=== PATIENT | male | born 1960 | race African-American/Black ===

== ENCOUNTER 2017-06-20 11:54 | Inpatient (IN) | payer MEDICAID ==
[~2017-06-20] VITALS: Ht 175.3 cm; Wt 69.4 kg
[2017-06-20 12:06] VITALS: BP 149/85; PULSE 100; RESP 16; TEMP 97.3; O2SAT 99
[2017-06-20 12:13] VITALS: RESP 16; O2SAT 99
[2017-06-20] MEDS ORDERED: SODIUM CHLORIDE 0.9% FLUSH 10 ML FLUSH IVF PRN (12:15)
[2017-06-20] MEDS ORDERED: RITO100 PO (12:19)
[2017-06-20] MEDS ORDERED: FOLI400T PO (12:19)
[2017-06-20] MEDS ORDERED: PRAV80TA2 PO (12:19)
[2017-06-20] MEDS ORDERED: LEVE500T8 PO (12:19)
[2017-06-20] MEDS ORDERED: EPZITAB3 PO (12:19)
[2017-06-20] MEDS ORDERED: VALP250C PO (12:19)
[2017-06-20] MEDS ORDERED: DILA100C PO (12:19)
[2017-06-20] MEDS ORDERED: PREZ150T PO (12:19)
[2017-06-20 12:47] LABS: BASOPHIL # 0.1 TH/MM3 (0-0.2); BASOPHIL % 0.8 % (0.0-2.0); EOSINOPHIL # 0.1 TH/MM3 (0-0.4); EOSINOPHIL % 0.7 % (0.0-4.0); HEMATOCRIT 45.6 % (39.0-51.0); HEMO FLAGS DIFF FINAL; LYMPH % 28.6 % (9.0-44.0); LYMPHOCYTE # 2.7 TH/MM3 (1.0-4.8); MEAN CELL VOLUME 93.9 FL (80.0-100.0); MEAN CORPUSCULAR HEMOGLOBIN 31.5 PG (27.0-34.0); MEAN CORPUSCULAR HGB CONC 33.5 % (32.0-36.0); MONO % 7.1 % (0.0-8.0); NEUT % 62.8 % (16.0-70.0); PLATELET COUNT 240 TH/MM3 (150-450); RED BLOOD COUNT 4.85 MIL/MM3 (4.50-5.90); RED CELL DISTRIBUTION WIDTH 14.2 % (11.6-17.2); WHITE BLOOD COUNT 9.5 TH/MM3 (4.0-11.0)
--- NOTE | 2017-06-20 13:10 | PD ---
HPI Chief Complaint: Seizure Time Seen by Provider: 12:08 Travel History International Travel<30 days: No Contact w/Intl Traveler<30days: No Traveled to known affect area: No History of Present Illness HPI Patient is a 57-year-old male with history of seizure disorder, stroke with right sided deficit here for reported seizure. Patient recently relocated from [place]. He is here living with a friend. Reportedly had a witnessed seizure in the home this morning, friend called EMS. EMS note the house to be in some disarray. All of patient's prescription bottles contained multiple different appearing medications. Patient friend told EMS that he administers medications to the patient, the patient has been refusing medications for approximately one week. Patient is postictal for EMS. Right sided deficit from previous CVA at baseline per EMS. Blood glucose normal. Patient is alert to self only, and is not able to participate with history. PFSH Past Medical History Cerebrovascular Accident: Yes Seizures: Yes Social History Alcohol Use: No (UNOBTAINABLE) Tobacco Use: No (UNOBTAINABLE) Substance Use: No (UNOBTAINABLE) Allergies-Medications (Allergen,Severity, Reaction): Coded Allergies: UNOBTAINABLE (Unverified , 06/20/17) Reported Meds & Prescriptions Reported Meds & Active Scripts Active Reported Pravastatin 80 Mg Tab 80 Mg PO HS Valproic Acid 250 Mg Cap 250 Mg PO TID Folic Acid Unknown Strength Tab 1 Mg PO DAILY Epzicom (Abacavir-Lamivudine) Unknown Strength Tab 600 Mg PO DAILY Hazardous agent; use appropriate precautions for handling & disposal. Norvir (Ritonavir) Unknown Strength Cap 100 Mg PO DAILY Prezista (Darunavir) Unknown Strength Tab 800 Mg PO DAILY Levetiracetam Unknown Strength Tab 500 Mg PO BID Dilantin (Phenytoin Extended) 100 Mg Cap 200 Mg PO BID Review of Systems Except as stated in HPI: all other systems reviewed are Neg Physical Exam Narrative GENERAL: Middle-aged male in no acute distress SKIN: Focused skin assessment warm/dry. HEAD: Atraumatic. Normocephalic. EYES: Pupils equal and round. 3 mm. No scleral icterus. No injection or drainage. ENT: No nasal bleeding or discharge. Mucous membranes pink and moist. NECK: Supple without nuchal rigidity CARDIOVASCULAR: Regular rate and rhythm. No murmur appreciated. RESPIRATORY: No accessory muscle use. Clear to auscultation. Breath sounds equal bilaterally. GASTROINTESTINAL: Abdomen soft, non-tender, nondistended. MUSCULOSKELETAL: No obvious deformities. No edema. NEUROLOGICAL: Awake and alert to self only. Unable to state place and believes it is 1968. No obvious cranial nerve deficits. Right sided arm/leg weakness compared to left but is able to move them and lift up off the bed. Patient has contracture of the right hand consistent with previous CVA and chronic muscle weakness/hemiplegia. Normal speech. Data Data Last Documented VS Vital Signs Date Time Temp Pulse Resp B/P Pulse Ox O2 Delivery O2 Flow Rate FiO2 06/20/17 12:13 16 99 Room Air 06/20/17 12:06 97.3 100 149/85 Orders Complete Blood Count With Diff (06/20/17 12:08) Basic Metabolic Panel (Bmp) (06/20/17 12:08) Phenytoin (Dilantin) (06/20/17 12:08) Ecg Monitoring (06/20/17 12:08) Iv Access Insert/Monitor (06/20/17 12:08) Oximetry (06/20/17 12:08) Sodium Chloride 0.9% Flush (Ns Flush) (06/20/17 12:15) Ammonia (06/20/17 12:08) Lactulose Liq (Lactulose Liq) (06/20/17 13:30) Fosphenytoin Inj (Cerebyx Inj) (06/20/17 13:45) Labs Laboratory Tests Test 06/20/17 12:29 White Blood Count 9.5 TH/MM3 Red Blood Count 4.85 MIL/MM3 Hemoglobin 15.3 GM/DL Hematocrit 45.6 % Mean Corpuscular Volume 93.9 FL Mean Corpuscular Hemoglobin 31.5 PG Mean Corpuscular Hemoglobin 33.5 % Concent Red Cell Distribution Width 14.2 % Platelet Count 240 TH/MM3 Mean Platelet Volume 8.1 FL Neutrophils (%) (Auto) 62.8 % Lymphocytes (%) (Auto) 28.6 % Monocytes (%) (Auto) 7.1 % Eosinophils (%) (Auto) 0.7 % Basophils (%) (Auto) 0.8 % Neutrophils # (Auto) 6.0 TH/MM3 Lymphocytes # (Auto) 2.7 TH/MM3 Monocytes # (Auto) 0.7 TH/MM3 Eosinophils # (Auto) 0.1 TH/MM3 Basophils # (Auto) 0.1 TH/MM3 CBC Comment DIFF FINAL Differential Comment Sodium Level 139 MEQ/L Potassium Level 4.2 MEQ/L Chloride Level 106 MEQ/L Carbon Dioxide Level 17.6 MEQ/L Anion Gap 15 MEQ/L Blood Urea Nitrogen 7 MG/DL Creatinine 1.14 MG/DL Estimat Glomerular Filtration 80 ML/MIN Rate Random Glucose 166 MG/DL Calcium Level 8.8 MG/DL Ammonia 101 MCMOL/L Phenytoin (Dilantin) Level LESS THAN 0.4 MCG/ML MDM Medical Decision Making Medical Screen Exam Complete: Yes Emergency Medical Condition: Yes Medical Record Reviewed: Yes Differential Diagnosis 57-year-old male with history of previous CVA and right sided hemiplegia, seizure disorder here for witnessed seizure at home, reportedly medication noncompliant times one week. Differential includes seizure, breakthrough seizure, medication nonadherence, pseudoseizure. Patient is still apparently post ictal on exam consistent with seizure. Narrative Course Patient placed on monitor, IV established and blood obtained. CBC, BMP, phenytoin level and ammonia level were obtained and notable for undetectable phenytoin. Ammonia elevated at 101. Bicarbonate slightly low at 17.6 likely due to recent seizure. Patient is still confused. Unclear whether this is due to postictal phase versus hyperammonemia. There is no family here to tell me how close this is patient's baseline. Patient was given dose of lactulose, loaded with 1 g of fosphenytoin and will be admitted for further management of hyperammonemia. Diagnosis Primary Impression: Hyperammonemia Additional Impressions: Post-ictal state Seizure Admitting Information Admitting Physician Requests: Beth Raymundo MD Jun 20, 2017 13:10
[2017-06-20 13:11] LABS: ANION GAP 15 MEQ/L (5-15); BICARBONATE 17.6 MEQ/L (21.0-32.0); BLOOD UREA NITROGEN 7 MG/DL (7-18); CHLORIDE 106 MEQ/L (98-107); GLOMERULAR FILTRATION RATE 80 ML/MIN (>89); POTASSIUM 4.2 MEQ/L (3.5-5.1); SODIUM (NA) 139 MEQ/L (136-145)
[2017-06-20] MEDS ORDERED: LACTULOSE SYRUP 20 GM/30 ML CUP PO ONE (13:30)
[2017-06-20] MEDS ORDERED: PHENYTOIN INJ 1,000 MG in SODIUM CHLORIDE 0.9% INJ 100 ML IV ONE (13:30)
[2017-06-20] MEDS ORDERED: FOSPHENYTOIN INJ 1,000 MGPE in SODIUM CHLORIDE 0.9% INJ 50 ML IV ONE (13:45)
[2017-06-20] MEDS ORDERED: SODIUM CHLORIDE 0.9% FLUSH 10 ML FLUSH IV FLUSH PRN (14:00)
[2017-06-20] MEDS ORDERED: NALOXONE HCL 0.4 MG/ML AMP IV PRN (14:00)
[2017-06-20] MEDS ORDERED: ONDANSETRON HCL 4 MG/2 ML VIAL IVP PRN (14:00)
[2017-06-20] MEDS ORDERED: LACTULOSE SYRUP 20 GM/30 ML CUP PO PRN (14:00)
[2017-06-20] MEDS ORDERED: SENNOSIDES 8.6 MG TAB PO PRN (14:00)
[2017-06-20] MEDS ORDERED: MAGNESIUM HYDROXIDE SUSP 30 ML CUP PO PRN (14:00)
[2017-06-20] MEDS ORDERED: BISACODYL 10 MG SUPP RECTAL PRN (14:00)
[2017-06-20] MEDS ORDERED: ACETAMINOPHEN 325 MG TAB PO PRN (14:00)
[2017-06-20] MEDS: SODIUM CHLOR 0.9% 1000 ML INJ 1,000 ML IV SCH (14:22)
[2017-06-20 14:25] VITALS: BP 153/68; PULSE 96; RESP 18; O2SAT 97
--- NOTE | 2017-06-20 15:03 | HHI.HP ---
[facility] Primary [facility] Physician Jose Le MD Admission Diagnosis hyperammonemia, postictal, seizure disorder Diagnoses: Chief Complaint: Altered mental status possible seizure Travel History International Travel<30 Days: No Contact w/Intl Traveler <30 Da: No Traveled to Known Affected Are: No History of Present Illness Written by Artemio Callaway, acting as scribe for Dr. Mondragon on 06/20/17 at 14:32. This note was transcribed by scribe CYNDIE Swanson. I, Dr. Jose Mondragon personally performed the history, physical exam, and medical decision making; and confirmed the accuracy of the information in the transcribed note. Authenticated by Dr. Jose Mondragon on 06/20/17 at 16:35. 57-year-old male with a reported past medical history of seizures, CVA, HIV, HLD who was brought in for possible seizure. Currently the patient is sitting up in bed, awake and alert, but completely disoriented and talking nonsensically. Patient is unable to answer any questions meaningfully and this is a noncontributory historian. History obtained from ED communication and the medical record. Reportedly the patient's friend/roommate noted the patient had a seizure. The question whether the patient has been taking his medications or not. He was found to have an elevated ammonia in the ED. The patient did receive 1 dose of lactulose. Review of Systems ROS Limitations: Altered Mental Status Review of systems is unobtainable secondary to altered mental status Past Family Social History Past Medical History Seizure disorder History of CVA with residual right-sided weakness On HIV medication Hyperlipidemia Past Surgical History Unable to obtain Reported Medications Reported Meds & Active Scripts Active Reported Pravastatin 80 Mg Tab 80 Mg PO HS Valproic Acid 250 Mg Cap 250 Mg PO TID Folic Acid Unknown Strength Tab 1 Mg PO DAILY Epzicom (Abacavir-Lamivudine) Unknown Strength Tab 600 Mg PO DAILY Hazardous agent; use appropriate precautions for handling & disposal. Norvir (Ritonavir) Unknown Strength Cap 100 Mg PO DAILY Prezista (Darunavir) Unknown Strength Tab 800 Mg PO DAILY Levetiracetam Unknown Strength Tab 500 Mg PO BID Dilantin (Phenytoin Extended) 100 Mg Cap 200 Mg PO BID Allergies: Coded Allergies: No Known Allergies (Unverified , 06/20/17) Active Ordered Medications Current Medications Medications (Trade) Dose Ordered Sig/Terri Route Start Time Stop Time Status Last Admin (NS 1000 ml Inj) 1,000 ml @ 100 mls/hr Q10H IV 06/20/17 14:00 06/20/17 14:22 (NS Flush) 2 ml UNSCH PRN IV FLUSH 06/20/17 14:00 (NS Flush) 2 ml BID IV FLUSH 06/20/17 21:00 (Tylenol) 650 mg Q4H PRN PO 06/20/17 14:00 (Zofran Inj) 4 mg Q6H PRN IVP 06/20/17 14:00 (Narcan Inj) 0.4 mg UNSCH PRN IV 06/20/17 14:00 (Merari-Colace) 1 tab BID PO 06/20/17 21:00 (Milk Of Magnesia Liq) 30 ml Q12H PRN PO 06/20/17 14:00 (Senokot) 17.2 mg Q12H PRN PO 06/20/17 14:00 (Dulcolax Supp) 10 mg DAILY PRN RECTAL 06/20/17 14:00 (Lactulose Liq) 30 ml DAILY PRN PO 06/20/17 14:00 Family History Unable to obtain Social History Unable to obtain Physical Exam Vital Signs Vital Signs Date Time Temp Pulse Resp B/P Pulse Ox O2 Delivery O2 Flow Rate FiO2 06/20/17 14:25 96 18 153/68 97 Room Air 06/20/17 12:13 16 99 Room Air 06/20/17 12:06 97.3 100 16 149/85 99 Physical Exam GENERAL: Well-developed well-nourished. In no acute distress. Sitting up in bed. Pleasant. Talking nonsensically. SKIN: Warm and dry. No lesions noted. HEENT: Normocephalic. Pupils equal and round. Mucous membranes pink and moist. CARDIOVASCULAR: Regular rate and rhythm. No murmur appreciated. RESPIRATORY: No accessory muscle use. Clear to auscultation. Breath sounds equal bilaterally. GASTROINTESTINAL: Abdomen soft, non-tender, nondistended. Bowel sounds x4. MUSCULOSKELETAL: No obvious deformities. No clubbing or cyanosis. No edema. NEUROLOGICAL: Awake and alert. Moves upper and lower extremities spontaneously. Normal speech, but perseverating. Laboratory Laboratory Tests Test 06/20/17 12:29 White Blood Count 9.5 Red Blood Count 4.85 Hemoglobin 15.3 Hematocrit 45.6 Mean Corpuscular Volume 93.9 Mean Corpuscular Hemoglobin 31.5 Mean Corpuscular Hemoglobin 33.5 Concent Red Cell Distribution Width 14.2 Platelet Count 240 Mean Platelet Volume 8.1 Neutrophils (%) (Auto) 62.8 Lymphocytes (%) (Auto) 28.6 Monocytes (%) (Auto) 7.1 Eosinophils (%) (Auto) 0.7 Basophils (%) (Auto) 0.8 Neutrophils # (Auto) 6.0 Lymphocytes # (Auto) 2.7 Monocytes # (Auto) 0.7 Eosinophils # (Auto) 0.1 Basophils # (Auto) 0.1 CBC Comment DIFF FINAL Differential Comment Sodium Level 139 Potassium Level 4.2 Chloride Level 106 Carbon Dioxide Level 17.6 Anion Gap 15 Blood Urea Nitrogen 7 Creatinine 1.14 Estimat Glomerular Filtration 80 Rate Random Glucose 166 Calcium Level 8.8 Ammonia 101 Phenytoin (Dilantin) Level LESS THAN 0.4 Result Diagram: 06/20/17 1229 06/20/17 1229 Assessment and Plan Assessment and Plan 57-year-old male with a reported past medical history of seizures, CVA, HIV, HLD who was brought in for possible seizure Acute encephalopathy: Probably metabolic secondary to postictal state and elevated ammonia/hepatic encephalopathy. -Check LFTs -Continue lactulose -Neuro checks -Follow-up ammonia level Seizure disorder: Reported seizure witnessed by the patient's roommate, but he has not been able to be contacted. Dilantin level undetectable, patient loaded with IV Celebrex in the ED. Bicarbonate was decreased at 17.6. Possible breakthrough seizure or secondary to noncompliance with medication. -Resume Dilantin and follow-up level in a.m. -Resume Keppra and valproic acid as well -Check EEG -Consider neurology consult Possible HIV: Reconcile and resume home antiretrovirals when patient is more awake and alert. DVT prophylaxis: SCDs Discussed Condition With Patient, Artemio Perdomo Jun 20, 2017 15:03 Erickson Mondragon DO Jun 20, 2017 16:35
[2017-06-20 16:03] VITALS: BP 165/88; PULSE 74; RESP 16; O2SAT 98
[2017-06-20 17:00] VITALS: BP 139/77; PULSE 66; RESP 20; TEMP 97.6; O2SAT 100
[2017-06-20 17:01] LABS: INDIRECT BILIRUBIN 0.2 MG/DL (0.0-0.8); TOTAL BILIRUBIN ADULT 0.3 MG/DL (0.2-1.0)
[2017-06-20] MEDS: LACTULOSE SYRUP 20 GM/30 ML CUP PO SCH ×2 (17:52→22:34)
[2017-06-20] MEDS: VALPROIC ACID 250 MG CAP PO SCH (18:43)
[2017-06-20 20:00] VITALS: BP 149/87; PULSE 69; RESP 18; TEMP 98.4; O2SAT 98
[2017-06-20] MEDS ORDERED: DOCUSATE SODIUM 50 MG/SENNA 8.6 MG TAB PO SCH (21:00)
[2017-06-20] MEDS: levETIRAcetam 500 MG TAB PO SCH (22:34)
[2017-06-20] MEDS: SODIUM CHLORIDE 0.9% FLUSH 10 ML FLUSH IV FLUSH SCH (22:34)
[2017-06-20] MEDS: PRAVASTATIN SOD 80 MG TAB PO SCH (22:34)
[2017-06-20] MEDS: PHENYTOIN SODIUM 100 MG CAP PO SCH (22:34)
[2017-06-21] VITALS: BP 140/80; PULSE 62; RESP 18; TEMP 98.3; O2SAT 97
[2017-06-21] MEDS: SODIUM CHLOR 0.9% 1000 ML INJ 1,000 ML IV SCH ×3 (01:15→21:08)
[2017-06-21 04:00] VITALS: BP 139/86; PULSE 63; RESP 18; TEMP 98.3; O2SAT 98
[2017-06-21 08:00] VITALS: BP 166/85; PULSE 76; RESP 20; TEMP 97.8; O2SAT 97
[2017-06-21] MEDS: VALPROIC ACID 250 MG CAP PO SCH ×3 (08:07→17:51)
[2017-06-21] MEDS: PHENYTOIN SODIUM 100 MG CAP PO SCH ×2 (08:07→21:01)
[2017-06-21] MEDS: LACTULOSE SYRUP 20 GM/30 ML CUP PO SCH ×4 (08:08→20:56)
[2017-06-21] MEDS: SODIUM CHLORIDE 0.9% FLUSH 10 ML FLUSH IV FLUSH SCH ×2 (08:08→21:00)
[2017-06-21] MEDS: levETIRAcetam 500 MG TAB PO SCH ×2 (08:14→21:02)
[2017-06-21 08:53] LABS: BASOPHIL % 0.7 % (0.0-2.0); EOSINOPHIL # 0.1 TH/MM3 (0-0.4); EOSINOPHIL % 0.9 % (0.0-4.0); HEMO FLAGS DIFF FINAL; LYMPH % 34.3 % (9.0-44.0); MEAN CELL VOLUME 94.4 FL (80.0-100.0); MEAN CORPUSCULAR HEMOGLOBIN 31.4 PG (27.0-34.0); MEAN CORPUSCULAR HGB CONC 33.2 % (32.0-36.0); MONO % 12.4 % (0.0-8.0); NEUT % 51.7 % (16.0-70.0); PLATELET COUNT 207 TH/MM3 (150-450); RED BLOOD COUNT 4.88 MIL/MM3 (4.50-5.90); RED CELL DISTRIBUTION WIDTH 14.9 % (11.6-17.2); WHITE BLOOD COUNT 5.9 TH/MM3 (4.0-11.0)
[2017-06-21 09:12] LABS: BICARBONATE 25.1 MEQ/L (21.0-32.0); POTASSIUM 3.8 MEQ/L (3.5-5.1)
[2017-06-21 12:00] VITALS: BP 151/90; PULSE 73; RESP 18; TEMP 97.6; O2SAT 99
--- NOTE | 2017-06-21 15:04 | MG ---
cc: AGAPITO RODRIGEZ M.D. Lab No: [id number] Date: 06/21/2017 Age: Sex: M Race: TECHNIQUE This is a 17-channel EEG. DESCRIPTION: The background rhythm shows fairly low amplitude slowing in the delta frequency, amplitude is only 5-10 microvolts. There is fairly prominent muscle artifact. I do not see any epileptiform discharges. I do not see any lateralizing features present. INTERPRETATION Abnormal study consistent with diffuse encephalopathy. MD PABLO Cesar/TLL /2:34 PM /3:00 PM
[2017-06-21 16:00] VITALS: BP 138/88; PULSE 78; RESP 18; TEMP 97.6; O2SAT 98
[2017-06-21 20:00] VITALS: BP 161/98; PULSE 75; RESP 18; TEMP 98.3; O2SAT 96
[2017-06-21] MEDS: PRAVASTATIN SOD 80 MG TAB PO SCH (20:57)
--- NOTE | 2017-06-21 21:54 | HHI.PR ---
Subjective Remarks Follow up for acute encephalopathy, seizure disorder. Patient appears to be mildly improved - able to tell me his name, date of . However, otherwise he remains confused, no coherent speech or thought process. Objective Vitals Vital Signs Date Time Temp Pulse Resp B/P Pulse Ox O2 Delivery O2 Flow Rate FiO2 06/21/17 20:00 98.3 75 18 161/98 96 06/21/17 17:53 21 06/21/17 16:00 97.6 78 18 138/88 98 06/21/17 12:00 97.6 73 18 151/90 99 06/21/17 08:00 97.8 76 20 166/85 97 06/21/17 04:00 98.3 63 18 139/86 98 06/21/17 00:00 98.3 62 18 140/80 97 I/O 06/20/17 06/20/17 06/20/17 06/21/17 06/21/17 06/21/17 06:59 14:59 22:59 06:59 14:59 22:59 Intake Total 890 ml 861 ml 720 ml 446 ml Output Total 300 ml Balance 890 ml 561 ml 720 ml 446 ml Intake Oral 100 ml 0 ml 720 ml IV Total 790 ml 861 ml 446 ml Output Urine Total 300 ml # Voids 2 3 # Bowel Movements 1 0 Result Diagram: 06/21/17 0815 06/21/17 0815 Objective Remarks GENERAL: Alert, NAD. SKIN: Warm and dry. HEAD: Normocephalic. EYES: No scleral icterus. No injection or drainage. NECK: Supple, trachea midline. No JVD or lymphadenopathy. CARDIOVASCULAR: Regular rate and rhythm without murmurs, gallops, or rubs. RESPIRATORY: Breath sounds equal bilaterally. No accessory muscle use. GASTROINTESTINAL: Abdomen soft, non-tender, nondistended. MUSCULOSKELETAL: No cyanosis, or edema. BACK: Nontender without obvious deformity. No CVA tenderness. Procedures EEG 06/21/2017 INTERPRETATION Abnormal study consistent with diffuse encephalopathy. A/P Problem List: (1) Encephalopathy acute ICD Code: G93.40 Status: Acute (2) Hyperammonemia ICD Code: E72.20 Status: Acute (3) Seizure ICD Code: R56.9 Status: Acute Assessment and Plan 57-year-old male with a reported past medical history of seizures, CVA, HIV, HLD who was brought in for possible seizure Acute encephalopathy: Probably metabolic secondary to postictal state and elevated ammonia/hepatic encephalopathy. - Ammonia 101. Repeat shows less than 10. - Mentation is somewhat improved. However, he remains largely encephalopathic. Seizure disorder: Reported seizure witnessed by the patient's roommate, but he has not been able to be contacted. Dilantin level undetectable, patient loaded with IV Celebrex in the ED. Bicarbonate was decreased at 17.6. Possible breakthrough seizure or secondary to noncompliance with medication. - Resume Dilantin and follow-up level in a.m. - Resume Keppra and valproic acid as well - Check EEG - shows abnormal study consistent with diffuse encephalopathy. - will consult Neurology for further input. -Consider neurology consult Possible HIV: Reconcile and resume home antiretrovirals when patient is more awake and alert. DVT prophylaxis: Erickson Lynn DO Jun 21, 2017 21:54
[2017-06-22] VITALS (7 sets, daily range): BP systolic 135–144; BP diastolic 82–91; PULSE 74–88; RESP 18–20; TEMP 97.4–98.4; O2SAT 97–100
[2017-06-22] MEDS: SODIUM CHLOR 0.9% 1000 ML INJ 1,000 ML IV SCH ×2 (05:26→16:00)
[2017-06-22] MEDS: levETIRAcetam 500 MG TAB PO SCH ×2 (07:28→20:23)
[2017-06-22] MEDS: PHENYTOIN SODIUM 100 MG CAP PO SCH ×2 (07:28→20:23)
[2017-06-22] MEDS: VALPROIC ACID 250 MG CAP PO SCH ×3 (07:28→17:39)
[2017-06-22] MEDS: SODIUM CHLORIDE 0.9% FLUSH 10 ML FLUSH IV FLUSH SCH ×2 (07:29→20:23)
[2017-06-22] MEDS: LACTULOSE SYRUP 20 GM/30 ML CUP PO SCH ×4 (07:29→20:23)
[2017-06-22] MEDS ORDERED: LORazepam 2 MG/ML VIAL IV PUSH PRN (11:45)
--- NOTE | 2017-06-22 12:08 | MB ---
cc: AGAPITO RODRIGEZ M.D. DATE OF CONSULTATION 06/22/2017 REASON FOR CONSULTATION Seizure. HISTORY OF PRESENT ILLNESS Mr. Ojeda is a 57-year-old man with a history of previous left hemisphere stroke and right-sided weakness secondary to seizure disorder. He is on Dilantin as well as valproic acid and Keppra. He was brought to the ER after he was noted to have a recurrent grand mal seizure. PAST MEDICAL HISTORY 1. History of previous stroke. 2. HIV positive. 3. Hyperlipidemia. 4. Stroke with right-sided weakness and aphasia. MEDICATIONS AT HOME 1. Pravastatin 80 mg daily. 2. Valproic acid 250 mg t.i.d. 3. Folic acid. 4. Epzicom 600 mg daily. 5. Norvir 100 mg daily. 6. Prezista 800 mg daily. 7. Keppra 500 mg b.i.d. 8. Dilantin 200 mg b.i.d. ALLERGIES None known. NEUROLOGIC EXAMINATION VITAL SIGNS: His blood pressure is 138/86, pulse is 88, respiratory rate is 20, temperature 98 degrees. HIGHER CORTICAL FUNCTION: He is alert. He has had an expressive aphasia. Follows commands. CRANIAL NERVES: He has a right upper motor neuron palsy. MOTOR EXAM: He has got a right hemiparesis at 1/5 right arm and right leg with normal strength on the left. REFLEXES: Symmetric. LABORATORY DATA Dilantin level on the 30th less than 0.4. Yesterday it was 11.9. Sodium 140, potassium 3.8, chloride 107, CO2 25.1. The BUN is 5, creatinine 0.85, glucose is 87, AST 24, ALT 26, alk phos 207. White count 5900, hemoglobin 15.3, hematocrit 46%, platelets 270,000. IMPRESSION Recurrent seizures, I suspect probably related to subtherapeutic Dilantin. RECOMMENDATIONS 1. We will repeat Dilantin level. 2. Also check a valproic acid level. 3. I would like to get an MRI brain as well as an EEG. MD PABLO Cesar/LUAN /11:32 AM /11:55 AM
--- NOTE | 2017-06-22 13:59 | HHI.PR ---
Subjective Remarks Follow up for acute encephalopathy, seizure disorder. Mr. Ojeda continues to show incoherent, confused pattern of mentation. Denies any acute concerns. Objective Vitals Vital Signs Date Time Temp Pulse Resp B/P Pulse Ox O2 Delivery O2 Flow Rate FiO2 06/22/17 12:00 97.7 88 20 135/82 99 06/22/17 08:00 98.1 88 20 138/86 99 06/22/17 04:00 98.4 74 18 137/87 100 06/22/17 00:00 97.4 77 18 144/89 99 06/21/17 20:00 98.3 75 18 161/98 96 06/21/17 17:53 21 06/21/17 16:00 97.6 78 18 138/88 98 I/O 06/21/17 06/21/17 06/21/17 06/22/17 06/22/17 06/22/17 07:00 15:00 23:00 07:00 15:00 23:00 Intake Total 861 ml 720 ml 446 ml 768 ml Output Total 300 ml 850 ml 550 ml Balance 561 ml 720 ml -404 ml 218 ml Intake Oral 0 ml 720 ml IV Total 861 ml 446 ml 768 ml Output Urine Total 300 ml 850 ml 550 ml # Voids 3 # Bowel Movements 1 0 1 2 Result Diagram: 06/21/1781406/21/17814 Objective Remarks GENERAL: Alert, NAD. SKIN: Warm and dry. HEAD: Normocephalic. EYES: No scleral icterus. No injection or drainage. NECK: Supple, trachea midline. No JVD or lymphadenopathy. CARDIOVASCULAR: Regular rate and rhythm without murmurs, gallops, or rubs. RESPIRATORY: Breath sounds equal bilaterally. No accessory muscle use. GASTROINTESTINAL: Abdomen soft, non-tender, nondistended. MUSCULOSKELETAL: No cyanosis, or edema. BACK: Nontender without obvious deformity. No CVA tenderness. Procedures EEG 06/21/2017 INTERPRETATION Abnormal study consistent with diffuse encephalopathy. A/P Problem List: (1) Encephalopathy acute ICD Code: G93.40 Status: Acute (2) Hyperammonemia ICD Code: E72.20 Status: Acute (3) Seizure ICD Code: R56.9 Status: Acute Assessment and Plan 57-year-old male with a reported past medical history of seizures, CVA, HIV, HLD who was brought in for possible seizure Acute encephalopathy: Probably metabolic secondary to postictal state and elevated ammonia/hepatic encephalopathy. - Ammonia 101. Repeat shows less than 10. - Mentation is somewhat improved. However, he remains largely encephalopathic. Seizure disorder: Reported seizure witnessed by the patient's roommate, but he has not been able to be contacted. Dilantin level undetectable, patient loaded with IV Celebrex in the ED. Bicarbonate was decreased at 17.6. Possible breakthrough seizure or secondary to noncompliance with medication. - Continue Keppra 500mg BID, Phenytoin 200mg BID and Valproic acid 250mg BID. - Phenytoin level was < 0.4. Repeat Phenytoin and Valproic acid level pending. - EEG - shows abnormal study consistent with diffuse encephalopathy. - Appreciate Neurology input. Dr. Mata has ordered additional tests including MRI brain which is pending. Possible HIV: Reconcile and resume home antiretrovirals when patient is more awake and alert. DVT prophylaxis: Erickson Lynn DO Jun 22, 2017 13:59
[2017-06-22] MEDS: PRAVASTATIN SOD 80 MG TAB PO SCH (20:23)
[2017-06-23] VITALS: BP 133/80; PULSE 86; RESP 17; TEMP 98; O2SAT 94
[2017-06-23] MEDS: SODIUM CHLOR 0.9% 1000 ML INJ 1,000 ML IV SCH ×3 (01:56→22:00)
[2017-06-23 04:00] VITALS: BP 124/81; PULSE 103; RESP 16; TEMP 97.7; O2SAT 94
[2017-06-23 08:00] VITALS: BP 147/86; PULSE 87; RESP 18; TEMP 97.5; O2SAT 98
[2017-06-23] MEDS: LACTULOSE SYRUP 20 GM/30 ML CUP PO SCH ×4 (09:50→20:24)
[2017-06-23] MEDS: levETIRAcetam 500 MG TAB PO SCH ×2 (09:50→20:23)
[2017-06-23] MEDS: SODIUM CHLORIDE 0.9% FLUSH 10 ML FLUSH IV FLUSH SCH ×2 (09:50→20:24)
[2017-06-23] MEDS: VALPROIC ACID 250 MG CAP PO SCH ×3 (09:50→17:06)
[2017-06-23] MEDS: PHENYTOIN SODIUM 100 MG CAP PO SCH ×2 (09:50→20:23)
[2017-06-23] MEDS ORDERED: GADODIAMIDE PF 287 MG/ML 5 ML VIAL (for RAD MRI) IV ONE (10:49)
--- NOTE | 2017-06-23 10:53 | RADRPT ---
EXAM DATE/TIME: 06/23/2017 08:53 [facility] COMPARISON: No previous studies available for comparison. INDICATIONS : Seizures. CONTRAST: 12 cc Omniscan (gadodiamide) IV MEDICAL HISTORY : Seizures. HIV. Stroke SURGICAL HISTORY : None. ENCOUNTER: Initial ACUITY: 3 day PAIN SCORE: 0/10 LOCATION: head TECHNIQUE: Multiplanar, multisequence MRI of the brain was performed both prior to and following the administrat ion of paramagnetic contrast. FINDINGS: CEREBRUM: There is moderate central and cortical atrophy dilatation of ventricular and sulcal spaces. No evide nce for an old infarct is seen in the left fundal region. There are no extra-axial fluid collections appreciated. There is no parenchymal hemorrhage. WHITE MATTER: Moderate periventricular white matter changes are noted extending into the posterior fossa. Minimal sclerosis left temporal lobe. POSTERIOR FOSSA: The cerebellum and brainstem are intact. Periventricular white matter changes are noted with minimal white matter disease. The 4th ventricle is midline. The cerebellopontine angle is unremarkable. Th e cerebellar tonsils are normal in position. DIFFUSION IMAGING: No focal areas of restricted diffusion are seen. No evidence of acute infarction. EXTRACRANIAL: Minimal right maxillary sinus disease is evident. POST-CONTRAST: There is no abnormal contrast enhancement. CONCLUSION: 1. One Central and cortical atrophy and moderate periventricular white disease. 2. Old ischemic changes. 3. Minimal sclerosis left temporal lobe. 4. There is no contrast enhancement. Alexys Faith MD FACR on June 23, 2017 at 10:47 Board Certified Radiologist. This report was verified electronically.
[2017-06-23 12:00] VITALS: BP 109/82; PULSE 92; RESP 18; TEMP 97.9; O2SAT 98
[2017-06-23 16:00] VITALS: BP 122/79; PULSE 86; RESP 18; TEMP 99.3; O2SAT 99
--- NOTE | 2017-06-23 16:58 | HHI.PR ---
Subjective Remarks Follow up for acute encephalopathy, seizure disorder. Patient remains alert but incoherent, encephalopathic. When asked, he denies any acute concerns. Objective Vitals Vital Signs Date Time Temp Pulse Resp B/P Pulse Ox O2 Delivery O2 Flow Rate FiO2 06/23/17 12:00 97.9 92 18 109/82 98 06/23/17 09:55 Room Air 06/23/17 08:00 97.5 87 18 147/86 98 06/23/17 04:00 97.7 103 16 124/81 94 06/23/17 04:00 Room Air 06/23/17 00:00 Room Air 06/23/17 00:00 98.0 86 17 133/80 94 06/22/17 20:00 Room Air 06/22/17 20:00 97.5 84 19 142/91 98 06/22/17 17:56 97 21 I/O 06/22/17 06/22/17 06/22/17 06/23/17 06/23/17 06/23/17 07:00 15:00 23:00 07:00 15:00 23:00 Intake Total 768 ml 600 ml 480 ml 1454 ml 240 ml Output Total 550 ml 450 ml 650 ml 2 ml 200 ml Balance 218 ml 150 ml -170 ml 1452 ml 40 ml Intake Oral 600 ml 480 ml 220 ml 240 ml IV Total 768 ml 1234 ml Output Urine Total 550 ml 450 ml 650 ml 2 ml 200 ml # Bowel Movements 2 0 1 2 2 Result Diagram: 06/21/17 0815 06/21/17 0815 Imaging Last Impressions Brain MRI 06/23/17 0000 Signed Impressions: Service Date/Time: Friday, June 23, 2017 08:53 - CONCLUSION: 1. One Central and cortical atrophy and moderate periventricular white disease. 2. Old ischemic changes. 3. Minimal sclerosis left temporal lobe. 4. There is no contrast enhancement. Alexys Faith MD FACR Objective Remarks GENERAL: Alert, NAD. SKIN: Warm and dry. HEAD: Normocephalic. EYES: No scleral icterus. No injection or drainage. NECK: Supple, trachea midline. No JVD or lymphadenopathy. CARDIOVASCULAR: Regular rate and rhythm without murmurs, gallops, or rubs. RESPIRATORY: Breath sounds equal bilaterally. No accessory muscle use. GASTROINTESTINAL: Abdomen soft, non-tender, nondistended. MUSCULOSKELETAL: No cyanosis, or edema. BACK: Nontender without obvious deformity. No CVA tenderness. Procedures EEG 06/21/2017 INTERPRETATION Abnormal study consistent with diffuse encephalopathy. A/P Problem List: (1) Encephalopathy acute ICD Code: G93.40 Status: Acute (2) Hyperammonemia ICD Code: E72.20 Status: Acute (3) Seizure ICD Code: R56.9 Status: Acute Assessment and Plan 57-year-old male with a reported past medical history of seizures, CVA, HIV, HLD who was brought in for possible seizure Acute encephalopathy: Probably metabolic secondary to postictal state and elevated ammonia/hepatic encephalopathy. - Ammonia 101. Repeat shows less than 10. - Mentation is somewhat improved. However, he remains largely encephalopathic. - MRI brain does not show any acute findings that could explain patient's encephalopathy. Seizure disorder: Reported seizure witnessed by the patient's roommate, but he has not been able to be contacted. Dilantin level undetectable, patient loaded with IV Celebrex in the ED. Bicarbonate was decreased at 17.6. Possible breakthrough seizure or secondary to noncompliance with medication. - Continue Keppra 500mg BID, Phenytoin 200mg BID and Valproic acid 250mg BID. - Phenytoin level was < 0.4. Repeat Phenytoin 11.9, 8.1 and Valproic acid level 49. - EEG - shows abnormal study consistent with diffuse encephalopathy. - Appreciate Neurology input. Possible HIV: Reconcile and resume home antiretrovirals when patient is more awake and alert. DVT prophylaxis: Erickson Lynn DO Jun 23, 2017 16:58
[2017-06-23 20:00] VITALS: BP 110/74; PULSE 78; RESP 20; TEMP 97.3; O2SAT 99
[2017-06-23] MEDS: PRAVASTATIN SOD 80 MG TAB PO SCH (20:23)
[2017-06-24] VITALS (7 sets, daily range): BP systolic 121–139; BP diastolic 61–84; PULSE 70–80; RESP 16–20; TEMP 97.3–98.1; O2SAT 96–98
[2017-06-24] MEDS: SODIUM CHLOR 0.9% 1000 ML INJ 1,000 ML IV SCH ×2 (02:09→12:29)
[2017-06-24] MEDS: VALPROIC ACID 250 MG CAP PO SCH ×3 (09:23→13:51)
[2017-06-24] MEDS: levETIRAcetam 500 MG TAB PO SCH ×2 (09:23→20:15)
[2017-06-24] MEDS: LACTULOSE SYRUP 20 GM/30 ML CUP PO SCH ×4 (09:24→20:15)
[2017-06-24] MEDS: PHENYTOIN SODIUM 100 MG CAP PO SCH ×2 (09:24→20:15)
[2017-06-24] MEDS: SODIUM CHLORIDE 0.9% FLUSH 10 ML FLUSH IV FLUSH SCH ×2 (09:24→20:15)
--- NOTE | 2017-06-24 18:42 | HHI.PR ---
Subjective Remarks Follow up for acute encephalopathy, seizure disorder. Mr. Ojeda is doing well. [id number] at bedside. She takes care of him a lot and reports that at his baseline, he is not able to run a coherent conversation. Based on my discussion with [id number], patient's mentation is likely his baseline. She wants him to go to a rehab. Objective Vitals Vital Signs Date Time Temp Pulse Resp B/P Pulse Ox O2 Delivery O2 Flow Rate FiO2 06/24/17 16:11 97.6 80 19 129/80 96 06/24/17 12:28 98 06/24/17 12:08 97.8 76 19 121/80 98 06/24/17 08:18 97.8 76 20 127/61 96 06/24/17 08:00 Room Air 06/24/17 04:00 Room Air 06/24/17 04:00 97.6 71 20 132/68 98 06/24/17 00:00 Room Air 06/24/17 00:00 97.3 72 20 132/81 97 06/23/17 20:00 Room Air 06/23/17 20:00 97.3 78 20 110/74 99 I/O 06/23/17 06/23/17 06/23/17 06/24/17 06/24/17 06/24/17 06:59 14:59 22:59 06:59 14:59 22:59 Intake Total 1454 ml 240 ml 480 ml 1220 ml 720 ml Output Total 2 ml 200 ml 0 ml Balance 1452 ml 40 ml 480 ml 1220 ml 720 ml Intake Oral 220 ml 240 ml 480 ml 720 ml IV Total 1234 ml 1220 ml Output Urine Total 2 ml 200 ml 0 ml # Voids 3 # Bowel Movements 2 2 2 2 Result Diagram: 06/21/1715 06/21/1715 Imaging Last Impressions Brain MRI 06/23/17 0000 Signed Impressions: Service Date/Time: Friday, June 23, 2017 08:53 - CONCLUSION: 1. One Central and cortical atrophy and moderate periventricular white disease. 2. Old ischemic changes. 3. Minimal sclerosis left temporal lobe. 4. There is no contrast enhancement. Alexys Faith MD FACR Objective Remarks GENERAL: Alert, NAD. SKIN: Warm and dry. HEAD: Normocephalic. EYES: No scleral icterus. No injection or drainage. NECK: Supple, trachea midline. No JVD or lymphadenopathy. CARDIOVASCULAR: Regular rate and rhythm without murmurs, gallops, or rubs. RESPIRATORY: Breath sounds equal bilaterally. No accessory muscle use. GASTROINTESTINAL: Abdomen soft, non-tender, nondistended. MUSCULOSKELETAL: No cyanosis, or edema. BACK: Nontender without obvious deformity. No CVA tenderness. Procedures EEG 06/21/2017 INTERPRETATION Abnormal study consistent with diffuse encephalopathy. A/P Problem List: (1) Encephalopathy acute ICD Code: G93.40 Status: Acute (2) Hyperammonemia ICD Code: E72.20 Status: Acute (3) Seizure ICD Code: R56.9 Status: Acute Assessment and Plan 57-year-old male with a reported past medical history of seizures, CVA, HIV, HLD who was brought in for possible seizure Acute encephalopathy: Probably metabolic secondary to postictal state and elevated ammonia/hepatic encephalopathy. - Ammonia 101. Repeat shows less than 10. - Mentation is somewhat improved. However, he remains largely encephalopathic. - MRI brain does not show any acute findings that could explain patient's encephalopathy. Seizure disorder: Reported seizure witnessed by the patient's roommate, but he has not been able to be contacted. Dilantin level undetectable, patient loaded with IV Celebrex in the ED. Bicarbonate was decreased at 17.6. Possible breakthrough seizure or secondary to noncompliance with medication. - Continue Keppra 500mg BID, Phenytoin 200mg BID and Valproic acid 250mg BID. - Phenytoin level was < 0.4. Repeat Phenytoin 11.9, 8.1 and Valproic acid level 49. - EEG - shows abnormal study consistent with diffuse encephalopathy. - Appreciate Neurology input. Possible HIV: Reconcile and resume home antiretrovirals when patient is more awake and alert. DVT prophylaxis: SCDs Discharge plan: Discussed with patient's [id number] and also discussed with CM who is working on placement. Patient is ready to be discharged whenever placement is arranged. Erickson Mondragon DO Jun 24, 2017 18:42
[2017-06-24] MEDS: PRAVASTATIN SOD 80 MG TAB PO SCH (20:15)
[2017-06-25] VITALS (8 sets, daily range): BP systolic 123–143; BP diastolic 71–81; PULSE 66–78; RESP 16–18; TEMP 97.4–98.2; O2SAT 96–100
[2017-06-25] MEDS: SODIUM CHLOR 0.9% 1000 ML INJ 1,000 ML IV SCH (04:00)
[2017-06-25] MEDS: PHENYTOIN SODIUM 100 MG CAP PO SCH ×2 (08:50→23:00)
[2017-06-25] MEDS: VALPROIC ACID 250 MG CAP PO SCH ×3 (08:50→17:53)
[2017-06-25] MEDS: levETIRAcetam 500 MG TAB PO SCH ×2 (08:50→23:00)
[2017-06-25] MEDS: LACTULOSE SYRUP 20 GM/30 ML CUP PO SCH ×4 (08:51→21:00)
[2017-06-25] MEDS: SODIUM CHLORIDE 0.9% FLUSH 10 ML FLUSH IV FLUSH SCH ×2 (08:51→23:00)
--- NOTE | 2017-06-25 13:28 | HHI.PR ---
Subjective Remarks Follow up for acute encephalopathy, seizure disorder. Mr. Ojeda is doing well. Denies any acute concerns. Sitting in his chair and eating lunch. Objective Vitals Vital Signs Date Time Temp Pulse Resp B/P Pulse Ox O2 Delivery O2 Flow Rate FiO2 06/25/17 12:00 98.0 76 18 140/76 99 06/25/17 10:30 97 06/25/17 09:00 Room Air 06/25/17 08:00 97.7 69 18 134/76 100 06/25/17 04:30 98.1 78 16 134/78 99 06/25/17 00:00 97.9 66 16 143/81 98 06/24/17 20:14 98.1 70 16 139/84 98 06/24/17 16:11 97.6 80 19 129/80 96 I/O 06/24/17 06/24/17 06/24/17 06/25/17 06/25/17 06/25/17 07:00 15:00 23:00 07:00 15:00 23:00 Intake Total 1220 ml 720 ml 240 ml 983 ml Output Total 1000 ml Balance 1220 ml 720 ml 240 ml -17 ml Intake Oral 720 ml 240 ml 0 ml IV Total 1220 ml 983 ml Output Urine Total 1000 ml # Voids 3 3 # Bowel Movements 2 1 0 Result Diagram: 06/21/1781406/21/17814 Objective Remarks GENERAL: Alert, NAD. SKIN: Warm and dry. HEAD: Normocephalic. EYES: No scleral icterus. No injection or drainage. NECK: Supple, trachea midline. No JVD or lymphadenopathy. CARDIOVASCULAR: Regular rate and rhythm without murmurs, gallops, or rubs. RESPIRATORY: Breath sounds equal bilaterally. No accessory muscle use. GASTROINTESTINAL: Abdomen soft, non-tender, nondistended. MUSCULOSKELETAL: No cyanosis, or edema. BACK: Nontender without obvious deformity. No CVA tenderness. Procedures EEG 06/21/2017 INTERPRETATION Abnormal study consistent with diffuse encephalopathy. A/P Problem List: (1) Encephalopathy acute ICD Code: G93.40 Status: Acute (2) Hyperammonemia ICD Code: E72.20 Status: Acute (3) Seizure ICD Code: R56.9 Status: Acute Assessment and Plan 57-year-old male with a reported past medical history of seizures, CVA, HIV, HLD who was brought in for possible seizure Acute encephalopathy: Probably metabolic secondary to postictal state and elevated ammonia/hepatic encephalopathy. - Ammonia 101. Repeat shows less than 10. - Mentation is somewhat improved. However, he remains largely encephalopathic. - MRI brain does not show any acute findings that could explain patient's encephalopathy. Seizure disorder: Reported seizure witnessed by the patient's roommate, but he has not been able to be contacted. Dilantin level undetectable, patient loaded with IV Celebrex in the ED. Bicarbonate was decreased at 17.6. Possible breakthrough seizure or secondary to noncompliance with medication. - Continue Keppra 500mg BID, Phenytoin 200mg BID and Valproic acid 250mg BID. - Phenytoin level was < 0.4. Repeat Phenytoin 11.9, 8.1 and Valproic acid level 49. - EEG - shows abnormal study consistent with diffuse encephalopathy. - Appreciate Neurology input. Possible HIV: Reconcile and resume home antiretrovirals when patient is more awake and alert. DVT prophylaxis: SCDs Discharge plan: Pending placement. Discussed with CM today. Erickson Mondragon DO Jun 25, 2017 13:28
[2017-06-25] MEDS: PRAVASTATIN SOD 80 MG TAB PO SCH (23:00)
[2017-06-26 00:01] VITALS: BP 142/77; PULSE 70; RESP 16; TEMP 97.7; O2SAT 99
[2017-06-26 04:11] VITALS: BP 133/74; PULSE 69; RESP 16; TEMP 97.5; O2SAT 99
[2017-06-26 08:00] VITALS: BP 132/78; PULSE 72; RESP 18; TEMP 97.7; O2SAT 97
[2017-06-26] MEDS: SODIUM CHLORIDE 0.9% FLUSH 10 ML FLUSH IV FLUSH SCH ×2 (08:59→21:00)
[2017-06-26] MEDS: PHENYTOIN SODIUM 100 MG CAP PO SCH ×2 (09:00→21:06)
[2017-06-26] MEDS: levETIRAcetam 500 MG TAB PO SCH ×2 (09:00→21:06)
[2017-06-26] MEDS: VALPROIC ACID 250 MG CAP PO SCH ×3 (09:00→17:44)
[2017-06-26] MEDS: LACTULOSE SYRUP 20 GM/30 ML CUP PO SCH ×4 (09:00→21:06)
[2017-06-26] MEDS: SODIUM CHLOR 0.9% 1000 ML INJ 1,000 ML IV SCH ×3 (10:00→21:06)
[2017-06-26 12:00] VITALS: BP 121/72; PULSE 71; RESP 18; TEMP 97.6; O2SAT 100
[2017-06-26 16:00] VITALS: BP 130/77; PULSE 77; RESP 18; TEMP 97.7; O2SAT 100
[2017-06-26] MEDS ORDERED: ABACAVIR LAMIVUDINE PO SCH (16:15)
--- NOTE | 2017-06-26 16:19 | HHI.PR ---
Subjective Remarks The patient was resting in bed comfortably. He had no acute complaints. Discussed with nursing. Objective Vitals Vital Signs Date Time Temp Pulse Resp B/P Pulse Ox O2 Delivery O2 Flow Rate FiO2 06/26/17 12:00 97.6 71 18 121/72 100 06/26/17 09:00 99 Room Air 06/26/17 08:00 97.7 72 18 132/78 97 06/26/17 04:11 97.5 69 16 133/74 99 06/26/17 00:01 97.7 70 16 142/77 99 06/25/17 20:30 Room Air 21 06/25/17 20:00 98.2 73 16 130/73 99 06/25/17 17:25 96 I/O 06/25/17 06/25/17 06/25/17 06/26/17 06/26/17 06/26/17 07:00 15:00 23:00 07:00 15:00 23:00 Intake Total 983 ml 360 ml 220 ml 360 ml Output Total 1000 ml 900 ml 200 ml 650 ml Balance -17 ml -540 ml 20 ml -290 ml Intake Oral 0 ml 360 ml 220 ml 360 ml IV Total 983 ml Output Urine Total 1000 ml 900 ml 200 ml 650 ml # Bowel Movements 0 0 0 1 Imaging Last Impressions Brain MRI 06/23/17 0000 Signed Impressions: Service Date/Time: Friday, June 23, 2017 08:53 - CONCLUSION: 1. One Central and cortical atrophy and moderate periventricular white disease. 2. Old ischemic changes. 3. Minimal sclerosis left temporal lobe. 4. There is no contrast enhancement. Alexys Faith MD FACR Objective Remarks GENERAL: Resting comfortably. SKIN: Warm and dry. HEAD: Normocephalic. EYES: No scleral icterus. No injection or drainage. NECK: Supple, trachea midline. No JVD or lymphadenopathy. CARDIOVASCULAR: Regular rate and rhythm without murmurs, gallops, or rubs. RESPIRATORY: Breath sounds equal bilaterally. No accessory muscle use. GASTROINTESTINAL: Abdomen soft, non-tender, nondistended. MUSCULOSKELETAL: No cyanosis, or edema. BACK: Nontender without obvious deformity. No CVA tenderness. NEURO: Seems confused. PSYCH: Flattened affect. Procedures EEG 06/21/2017 INTERPRETATION Abnormal study consistent with diffuse encephalopathy. Medications and IVs Current Medications Medications (Trade) Dose Ordered Sig/Terri Route Start Time Stop Time Status Last Admin (NS 1000 ml Inj) 1,000 ml @ 100 mls/hr Q10H IV 06/20/17 14:00 06/26/17 00:00 (NS Flush) 2 ml UNSCH PRN IV FLUSH 06/20/17 14:00 (NS Flush) 2 ml BID IV FLUSH 06/20/17 21:00 06/25/17 23:00 (Tylenol) 650 mg Q4H PRN PO 06/20/17 14:00 (Zofran Inj) 4 mg Q6H PRN IVP 06/20/17 14:00 (Narcan Inj) 0.4 mg UNSCH PRN IV 06/20/17 14:00 (Milk Of Magnesia Liq) 30 ml Q12H PRN PO 06/20/17 14:00 (Senokot) 17.2 mg Q12H PRN PO 06/20/17 14:00 (Dulcolax Supp) 10 mg DAILY PRN RECTAL 06/20/17 14:00 (Lactulose Liq) 30 ml QID PO 06/20/17 18:00 06/26/17 13:00 (Dilantin) 200 mg BID PO 06/20/17 21:00 06/26/17 09:00 (Pravachol) 80 mg HS PO 06/20/17 21:00 06/25/17 23:00 (Depakene) 250 mg TID PO 06/20/17 18:00 06/26/17 13:00 (Keppra) 500 mg BID PO 06/20/17 21:00 06/26/17 09:00 (Ativan Inj) 1 mg Q2H PRN IV PUSH 06/22/17 11:45 A/P Problem List: (1) Encephalopathy acute ICD Code: G93.40 Status: Acute (2) Hyperammonemia ICD Code: E72.20 Status: Acute (3) Seizure ICD Code: R56.9 Status: Acute Assessment and Plan 57-year-old male with a reported past medical history of seizures, CVA, HIV, HLD who was brought in for possible seizure Acute encephalopathy: Probably metabolic secondary to postictal state and elevated ammonia/hepatic encephalopathy. - Ammonia 101. Repeat shows less than 10. - Mentation is somewhat improved. However, he remains largely encephalopathic. - MRI brain does not show any acute findings that could explain patient's encephalopathy. - follow up with neurology. Seizure disorder: Reported seizure witnessed by the patient's roommate, but he has not been able to be contacted. Dilantin level undetectable, patient loaded with IV Celebrex in the ED. Bicarbonate was decreased at 17.6. Possible breakthrough seizure or secondary to noncompliance with medication. - Continue Keppra 500mg BID, Phenytoin 200mg BID and Valproic acid 250mg BID. - Phenytoin level was < 0.4. Repeat Phenytoin 11.9, 8.1 and Valproic acid level 49. - EEG - shows abnormal study consistent with diffuse encephalopathy. - Appreciate Neurology input. HIV - resume home antiretrovirals. DVT prophylaxis: SCDs Discharge Planning Awaiting placement Andreas Rogers DO Jun 26, 2017 16:19
[2017-06-26] MEDS: FOLIC ACID 1 MG TAB PO SCH (16:45)
[2017-06-26 20:00] VITALS: BP 127/79; PULSE 81; RESP 18; TEMP 97.5; O2SAT 98
[2017-06-26 20:46] LABS: ANION GAP 7 MEQ/L (5-15); AST (GOT) 21 U/L (15-37); BICARBONATE 26.8 MEQ/L (21.0-32.0); BLOOD UREA NITROGEN 6 MG/DL (7-18); CHLORIDE 105 MEQ/L (98-107); GLOMERULAR FILTRATION RATE 118 ML/MIN (>89); POTASSIUM 4.5 MEQ/L (3.5-5.1); SODIUM (NA) 139 MEQ/L (136-145)
[2017-06-26 20:47] LABS: AUTOMATED NEUTROPHIL # 2.4 TH/MM3 (1.8-7.7); BASOPHIL % 0.8 % (0.0-2.0); EOSINOPHIL # 0.1 TH/MM3 (0-0.4); EOSINOPHIL % 1.1 % (0.0-4.0); HEMATOCRIT 44.2 % (39.0-51.0); HEMO FLAGS DIFF FINAL; LYMPH % 35.9 % (9.0-44.0); LYMPHOCYTE # 1.8 TH/MM3 (1.0-4.8); MEAN CELL VOLUME 92.7 FL (80.0-100.0); MEAN CORPUSCULAR HEMOGLOBIN 30.2 PG (27.0-34.0); MEAN CORPUSCULAR HGB CONC 32.6 % (32.0-36.0); MONO % 13.6 % (0.0-8.0); NEUT % 48.6 % (16.0-70.0); PLATELET COUNT 172 TH/MM3 (150-450); RED BLOOD COUNT 4.77 MIL/MM3 (4.50-5.90); WHITE BLOOD COUNT 4.9 TH/MM3 (4.0-11.0)
[2017-06-26] MEDS: PRAVASTATIN SOD 80 MG TAB PO SCH (21:06)
[2017-06-26 21:11] LABS: ALKALINE PHOSPHATASE 181 U/L (45-117); ALT (GPT) 20 U/L (12-78); TOTAL BILIRUBIN ADULT 0.2 MG/DL (0.2-1.0)
[2017-06-27] VITALS (8 sets, daily range): BP systolic 125–150; BP diastolic 68–84; PULSE 62–85; RESP 18–20; TEMP 97.4–98; O2SAT 96–100
[2017-06-27] MEDS: SODIUM CHLOR 0.9% 1000 ML INJ 1,000 ML IV SCH ×2 (05:45→14:26)
[2017-06-27] MEDS: VALPROIC ACID 250 MG CAP PO SCH ×3 (09:00→18:08)
[2017-06-27] MEDS: SODIUM CHLORIDE 0.9% FLUSH 10 ML FLUSH IV FLUSH SCH ×2 (09:00→20:16)
[2017-06-27] MEDS: ABACAVIR SULFATE 300 MG TAB PO SCH (09:00)
[2017-06-27] MEDS: PHENYTOIN SODIUM 100 MG CAP PO SCH ×2 (09:00→20:17)
[2017-06-27] MEDS: FOLIC ACID 1 MG TAB PO SCH (09:00)
[2017-06-27] MEDS: levETIRAcetam 500 MG TAB PO SCH ×2 (09:00→20:17)
[2017-06-27] MEDS: LACTULOSE SYRUP 20 GM/30 ML CUP PO SCH ×4 (09:00→20:17)
[2017-06-27] MEDS: DARUNAVIR 800 MG TAB PO SCH (09:00)
[2017-06-27] MEDS: RITONAVIR 100 MG TAB PO SCH (09:00)
--- NOTE | 2017-06-27 13:45 | HHI.PR ---
Subjective Remarks The patient was watching TV. He had no acute complaints. He denied any pain on urination. He denied any shortness of breath or cough. Objective Vitals Vital Signs Date Time Temp Pulse Resp B/P Pulse Ox O2 Delivery O2 Flow Rate FiO2 06/27/17 12:00 97.8 85 18 150/84 99 06/27/17 11:43 97 06/27/17 08:45 Room Air 06/27/17 08:00 97.6 62 18 143/84 97 06/27/17 05:00 97.9 68 20 134/80 100 06/27/17 04:00 Room Air 06/27/17 00:00 Room Air 06/27/17 00:00 97.7 75 20 125/68 96 06/26/17 20:00 Room Air 06/26/17 20:00 97.5 81 18 127/79 98 06/26/17 16:00 97.7 77 18 130/77 100 I/O 06/26/17 06/26/17 06/26/17 06/27/17 06/27/17 06/27/17 07:00 15:00 23:00 07:00 15:00 23:00 Intake Total 360 ml 720 ml 1586 ml Output Total 650 ml 850 ml 400 ml Balance -290 ml -130 ml 1586 ml -400 ml Intake Oral 360 ml 720 ml 320 ml IV Total 1266 ml Output Urine Total 650 ml 850 ml 400 ml # Bowel Movements 1 0 3 Result Diagram: 06/26/17194206/26/17 194 Imaging Last Impressions Brain MRI 06/23/17 0000 Signed Impressions: Service Date/Time: Friday, June 23, 2017 08:53 - CONCLUSION: 1. One Central and cortical atrophy and moderate periventricular white disease. 2. Old ischemic changes. 3. Minimal sclerosis left temporal lobe. 4. There is no contrast enhancement. Alexys Faith MD FACR Objective Remarks GENERAL: Resting comfortably. SKIN: Warm and dry. HEAD: Normocephalic. EYES: No scleral icterus. No injection or drainage. NECK: Supple, trachea midline. No JVD or lymphadenopathy. CARDIOVASCULAR: Regular rate and rhythm without murmurs, gallops, or rubs. RESPIRATORY: Breath sounds equal bilaterally. No accessory muscle use. GASTROINTESTINAL: Abdomen soft, non-tender, nondistended. MUSCULOSKELETAL: No cyanosis, or edema. BACK: Nontender without obvious deformity. No CVA tenderness. NEURO: Answers questions with a "yes or no" for the most part. PSYCH: Flattened affect. Procedures EEG 06/21/2017 INTERPRETATION Abnormal study consistent with diffuse encephalopathy. Medications and IVs Current Medications Medications (Trade) Dose Ordered Sig/Terri Route Start Time Stop Time Status Last Admin (NS 1000 ml Inj) 1,000 ml @ 100 mls/hr Q10H IV 06/20/17 14:00 06/27/17 05:45 (NS Flush) 2 ml UNSCH PRN IV FLUSH 06/20/17 14:00 (NS Flush) 2 ml BID IV FLUSH 06/20/17 21:00 06/27/17 09:00 (Tylenol) 650 mg Q4H PRN PO 06/20/17 14:00 (Zofran Inj) 4 mg Q6H PRN IVP 06/20/17 14:00 (Narcan Inj) 0.4 mg UNSCH PRN IV 06/20/17 14:00 (Milk Of Magnesia Liq) 30 ml Q12H PRN PO 06/20/17 14:00 (Senokot) 17.2 mg Q12H PRN PO 06/20/17 14:00 (Dulcolax Supp) 10 mg DAILY PRN RECTAL 06/20/17 14:00 (Lactulose Liq) 30 ml QID PO 06/20/17 18:00 06/26/17 21:06 (Dilantin) 200 mg BID PO 06/20/17 21:00 06/27/17 09:00 (Pravachol) 80 mg HS PO 06/20/17 21:00 06/26/17 21:06 (Depakene) 250 mg TID PO 06/20/17 18:00 06/27/17 09:00 (Keppra) 500 mg BID PO 06/20/17 21:00 06/27/17 09:00 (Ativan Inj) 1 mg Q2H PRN IV PUSH 06/22/17 11:45 (Prezista) 800 mg DAILY PO 06/26/17 16:45 06/27/17 09:00 (Folate) 1 mg DAILY PO 06/26/17 16:45 06/27/17 09:00 (Norvir) 100 mg DAILY PO 06/26/17 16:45 06/27/17 09:00 (Epivir) 300 mg DAILY PO 06/26/17 17:00 06/27/17 09:00 (Ziagen) 600 mg DAILY PO 06/26/17 17:00 06/27/17 09:00 A/P Problem List: (1) Encephalopathy acute ICD Code: G93.40 Status: Acute (2) Hyperammonemia ICD Code: E72.20 Status: Acute (3) Seizure ICD Code: R56.9 Status: Acute Assessment and Plan 57-year-old male with a reported past medical history of seizures, CVA, HIV, HLD who was brought in for possible seizure Acute encephalopathy: Probably metabolic secondary to postictal state and elevated ammonia/hepatic encephalopathy. - Ammonia 101. Repeat shows less than 10. Will recheck levels. Check a B12 level. - Mentation is somewhat improved. However, he remains largely encephalopathic. - MRI brain does not show any acute findings that could explain patient's encephalopathy. - follow up with neurology. Seizure disorder: Reported seizure witnessed by the patient's roommate, but he has not been able to be contacted. Dilantin level undetectable, patient loaded with IV Celebrex in the ED. Bicarbonate was decreased at 17.6. Possible breakthrough seizure or secondary to noncompliance with medication. - Continue Keppra 500mg BID, Phenytoin 200mg BID and Valproic acid 250mg BID. - Phenytoin level was < 0.4. Repeat Phenytoin 11.9, 8.1 and Valproic acid level 49. - EEG - shows abnormal study consistent with diffuse encephalopathy. - Appreciate Neurology input. HIV - resume home antiretrovirals. DVT prophylaxis: SCDs Discharge Planning Awaiting placement Andreas Rogers DO Jun 27, 2017 13:45
--- NOTE | 2017-06-27 14:35 | RADRPT ---
EXAM DATE/TIME: 06/27/2017 14:10 [facility] COMPARISON: No previous studies available for comparison. INDICATIONS : Evaluate for pneumonia MEDICAL HISTORY : Seizures. HIV. Stroke SURGICAL HISTORY : None. ENCOUNTER: Initial ACUITY: 4 - 6 days PAIN SCORE: 0/10 LOCATION: chest FINDINGS: A single view of the chest demonstrates the lungs to be symmetrically aerated without evidence of mas s, infiltrate or effusion. The cardiomediastinal contours are unremarkable. Osseous structures are intact. CONCLUSION: No evidence of acute cardiopulmonary disease. Buzz Yañez MD on June 27, 2017 at 14:33 Board Certified Radiologist. This report was verified electronically.
[2017-06-27] MEDS: PRAVASTATIN SOD 80 MG TAB PO SCH (20:17)
[2017-06-28] VITALS (8 sets, daily range): BP systolic 125–145; BP diastolic 71–83; PULSE 72–94; RESP 18–20; TEMP 97.3–99.8; O2SAT 94–99
[2017-06-28] MEDS: SODIUM CHLOR 0.9% 1000 ML INJ 1,000 ML IV SCH ×3 (01:20→22:17)
[2017-06-28] MEDS: SODIUM CHLORIDE 0.9% FLUSH 10 ML FLUSH IV FLUSH SCH ×2 (09:00→22:16)
[2017-06-28] MEDS: VALPROIC ACID 250 MG CAP PO SCH ×3 (09:35→17:21)
[2017-06-28] MEDS: FOLIC ACID 1 MG TAB PO SCH (09:35)
[2017-06-28] MEDS: RITONAVIR 100 MG TAB PO SCH (09:35)
[2017-06-28] MEDS: DARUNAVIR 800 MG TAB PO SCH (09:35)
[2017-06-28] MEDS: levETIRAcetam 500 MG TAB PO SCH ×2 (09:35→22:16)
[2017-06-28] MEDS: ABACAVIR SULFATE 300 MG TAB PO SCH (09:36)
[2017-06-28] MEDS: PHENYTOIN SODIUM 100 MG CAP PO SCH ×2 (09:36→22:16)
[2017-06-28] MEDS: LACTULOSE SYRUP 20 GM/30 ML CUP PO SCH ×4 (09:36→22:15)
--- NOTE | 2017-06-28 12:37 | HHI.PR ---
Subjective Remarks The patient was resting comfortably in bed. He did seem to indicate he had some sort of a headache. Otherwise no acute complaint. Objective Vitals Vital Signs Date Time Temp Pulse Resp B/P Pulse Ox O2 Delivery O2 Flow Rate FiO2 06/28/17 08:00 97.4 72 18 125/73 99 06/28/17 04:00 98.2 90 20 136/71 94 06/28/17 04:00 Room Air 06/28/17 00:00 99.8 94 20 145/83 99 06/28/17 00:00 Room Air 06/27/17 20:00 Room Air 06/27/17 19:00 98.0 81 18 127/73 98 06/27/17 18:24 98 21 06/27/17 16:00 97.4 84 18 146/80 100 I/O 06/27/17 06/27/17 06/27/17 06/28/17 06/28/17 06/28/17 07:00 15:00 23:00 07:00 15:00 23:00 Intake Total 720 ml 240 ml 120 ml Output Total 400 ml 1600 ml 300 ml Balance -400 ml -880 ml -60 ml 120 ml Intake Oral 720 ml 240 ml 120 ml Output Urine Total 400 ml 1600 ml 300 ml # Voids 1 2 # Bowel Movements 3 1 1 1 Result Diagram: 06/26/17194206/26/171942 Objective Remarks GENERAL: Resting comfortably. SKIN: Warm and dry. HEAD: Normocephalic. EYES: No scleral icterus. No injection or drainage. NECK: Supple, trachea midline. No JVD or lymphadenopathy. CARDIOVASCULAR: Regular rate and rhythm without murmurs, gallops, or rubs. RESPIRATORY: Breath sounds equal bilaterally. No accessory muscle use. GASTROINTESTINAL: Abdomen soft, non-tender, nondistended. MUSCULOSKELETAL: No cyanosis, or edema. BACK: Nontender without obvious deformity. No CVA tenderness. NEURO: Answers questions with a "yes or no" for the most part. PSYCH: Flattened affect. Procedures EEG 06/21/2017 INTERPRETATION Abnormal study consistent with diffuse encephalopathy. Medications and IVs Current Medications Medications (Trade) Dose Ordered Sig/Terri Route Start Time Stop Time Status Last Admin (NS 1000 ml Inj) 1,000 ml @ 100 mls/hr Q10H IV 06/20/17 14:00 06/28/17 01:20 (NS Flush) 2 ml UNSCH PRN IV FLUSH 06/20/17 14:00 (NS Flush) 2 ml BID IV FLUSH 06/20/17 21:00 06/27/17 09:00 (Tylenol) 650 mg Q4H PRN PO 06/20/17 14:00 (Zofran Inj) 4 mg Q6H PRN IVP 06/20/17 14:00 (Narcan Inj) 0.4 mg UNSCH PRN IV 06/20/17 14:00 (Milk Of Magnesia Liq) 30 ml Q12H PRN PO 06/20/17 14:00 (Senokot) 17.2 mg Q12H PRN PO 06/20/17 14:00 (Dulcolax Supp) 10 mg DAILY PRN RECTAL 06/20/17 14:00 (Lactulose Liq) 30 ml QID PO 06/20/17 18:00 06/28/17 09:36 (Dilantin) 200 mg BID PO 06/20/17 21:00 06/28/17 09:36 (Pravachol) 80 mg HS PO 06/20/17 21:00 06/27/17 20:17 (Depakene) 250 mg TID PO 06/20/17 18:00 06/28/17 09:35 (Keppra) 500 mg BID PO 06/20/17 21:00 06/28/17 09:35 (Ativan Inj) 1 mg Q2H PRN IV PUSH 06/22/17 11:45 (Prezista) 800 mg DAILY PO 06/26/17 16:45 06/28/17 09:35 (Folate) 1 mg DAILY PO 06/26/17 16:45 06/28/17 09:35 (Norvir) 100 mg DAILY PO 06/26/17 16:45 06/28/17 09:35 (Epivir) 300 mg DAILY PO 06/26/17 17:00 06/28/17 09:34 (Ziagen) 600 mg DAILY PO 06/26/17 17:00 06/28/17 09:36 A/P Problem List: (1) Encephalopathy acute ICD Code: G93.40 Status: Acute (2) Hyperammonemia ICD Code: E72.20 Status: Acute (3) Seizure ICD Code: R56.9 Status: Acute Assessment and Plan 57-year-old male with a reported past medical history of seizures, CVA, HIV, HLD who was brought in for possible seizure Acute encephalopathy Probably metabolic secondary to postictal state and elevated ammonia/ hepatic encephalopathy. Mentation is somewhat improved, however, he remains largely encephalopathic. MRI brain does not show any acute findings that could explain patient's encephalopathy. Ammonia 101. Repeat level is over 40. - Continue lactulose. - follow up with neurology. - neuro checks. - PT/ OT. Seizure disorder Reported seizure witnessed by the patient's roommate, but he has not been able to be contacted. Dilantin level undetectable, patient loaded with IV Celebrex in the ED. Bicarbonate was decreased at 17.6. Possible breakthrough seizure or secondary to noncompliance with medication. Phenytoin level was < 0.4. Repeat Phenytoin 11.9, 8.1 and Valproic acid level 49. EEG shows abnormal study consistent with diffuse encephalopathy. - Continue Keppra 500mg BID, Phenytoin 200mg BID and Valproic acid 250mg BID. - Neurology follow-up. - seizure precautions. HIV On antiretrovirals. - resume home antiretrovirals. Headache The pt seemed to be indicating a headache. - Tylenol as needed. DVT prophylaxis: SCDs Discharge Planning Awaiting placement Andreas Rogers DO Jun 28, 2017 12:37
[2017-06-28] MEDS ORDERED: ACETAMINOPHEN 325 MG TAB PO ONE (12:45)
[2017-06-28 17:30] LABS: BLOOD, URINE SMALL (NEG); GLUCOSE,URINE NEG (NEG); KETONE, URINE NEG (NEG); NITRITE,URINE NEG (NEG); PH, URINE 7.5 (5.0-8.5); SQUAMOUS EPITHELIAL CELL URINE 1 /hpf (0-5); URINE COLOR YELLOW (YELLW/STRAW)
[2017-06-28 17:32] LABS: COMMENT (UR) CATH-CULT NOT IND; CULTURE IF INDICATED CATH CULTURE NOT IND
[2017-06-28] MEDS: PRAVASTATIN SOD 80 MG TAB PO SCH (22:16)
[2017-06-29] VITALS (7 sets, daily range): BP systolic 114–135; BP diastolic 71–82; PULSE 65–82; RESP 16–20; TEMP 97.3–98.9; O2SAT 95–100
[2017-06-29] MEDS: SODIUM CHLOR 0.9% 1000 ML INJ 1,000 ML IV SCH ×2 (08:44→17:59)
[2017-06-29] MEDS: FOLIC ACID 1 MG TAB PO SCH (08:46)
[2017-06-29] MEDS: LACTULOSE SYRUP 20 GM/30 ML CUP PO SCH ×4 (08:46→22:24)
[2017-06-29] MEDS: DARUNAVIR 800 MG TAB PO SCH (08:46)
[2017-06-29] MEDS: VALPROIC ACID 250 MG CAP PO SCH ×3 (08:46→17:56)
[2017-06-29] MEDS: levETIRAcetam 500 MG TAB PO SCH ×2 (08:46→22:24)
[2017-06-29] MEDS: RITONAVIR 100 MG TAB PO SCH (08:47)
[2017-06-29] MEDS: ABACAVIR SULFATE 300 MG TAB PO SCH (08:47)
[2017-06-29] MEDS: SODIUM CHLORIDE 0.9% FLUSH 10 ML FLUSH IV FLUSH SCH ×2 (08:47→21:00)
[2017-06-29] MEDS: PHENYTOIN SODIUM 100 MG CAP PO SCH ×2 (08:47→22:24)
--- NOTE | 2017-06-29 13:36 | HHI.PR ---
Subjective Remarks The patient was resting in bed with blankets draped over his head. He had no acute complaints. He was resting comfortably. Objective Vitals Vital Signs Date Time Temp Pulse Resp B/P Pulse Ox O2 Delivery O2 Flow Rate FiO2 06/29/17 12:00 97.5 81 20 114/74 97 06/29/17 09:52 95 21 06/29/17 08:00 97.4 76 20 128/76 98 06/29/17 04:00 98.9 71 16 135/71 99 06/29/17 00:00 97.3 65 18 130/82 100 06/28/17 20:00 98.0 81 18 139/83 99 06/28/17 20:00 Room Air 06/28/17 16:59 97 06/28/17 16:00 98.0 80 18 129/81 99 06/28/17 16:00 99 Room Air 06/28/17 14:57 99 Room Air I/O 06/28/17 06/28/17 06/28/17 06/29/17 06/29/17 06/29/17 07:00 15:00 23:00 07:00 15:00 23:00 Intake Total 120 ml 1669 ml 120 ml Output Total 600 ml 200 ml Balance 120 ml 1069 ml -80 ml Intake Oral 120 ml 360 ml 120 ml IV Total 1309 ml Output Urine Total 600 ml 200 ml # Voids 2 2 # Bowel Movements 1 0 1 Result Diagram: 06/26/17194206/26/171942 Imaging Last Impressions Chest X-Ray 06/27/17 0000 Signed Impressions: Service Date/Time: Tuesday, June 27, 2017 14:10 - CONCLUSION: No evidence of acute cardiopulmonary disease. Buzz Yañez MD Brain MRI 06/23/17 0000 Signed Impressions: Service Date/Time: Friday, June 23, 2017 08:53 - CONCLUSION: 1. One Central and cortical atrophy and moderate periventricular white disease. 2. Old ischemic changes. 3. Minimal sclerosis left temporal lobe. 4. There is no contrast enhancement. Alexys Faith MD FACR Objective Remarks GENERAL: Resting comfortably. SKIN: Warm and dry. HEAD: Normocephalic. EYES: No scleral icterus. No injection or drainage. NECK: Supple, trachea midline. No JVD or lymphadenopathy. CARDIOVASCULAR: Regular rate and rhythm without murmurs, gallops, or rubs. RESPIRATORY: Breath sounds equal bilaterally. No accessory muscle use. GASTROINTESTINAL: Abdomen soft, non-tender, nondistended. MUSCULOSKELETAL: No cyanosis, or edema. BACK: Nontender without obvious deformity. No CVA tenderness. NEURO: Answers questions with a "yes or no" for the most part. PSYCH: Flattened affect. Procedures None Medications and IVs Current Medications Medications (Trade) Dose Ordered Sig/Terri Route Start Time Stop Time Status Last Admin (NS 1000 ml Inj) 1,000 ml @ 100 mls/hr Q10H IV 06/20/17 14:00 06/29/17 08:44 (NS Flush) 2 ml UNSCH PRN IV FLUSH 06/20/17 14:00 (NS Flush) 2 ml BID IV FLUSH 06/20/17 21:00 06/28/17 22:16 (Tylenol) 650 mg Q4H PRN PO 06/20/17 14:00 (Zofran Inj) 4 mg Q6H PRN IVP 06/20/17 14:00 (Narcan Inj) 0.4 mg UNSCH PRN IV 06/20/17 14:00 (Milk Of Magnesia Liq) 30 ml Q12H PRN PO 06/20/17 14:00 (Senokot) 17.2 mg Q12H PRN PO 06/20/17 14:00 (Dulcolax Supp) 10 mg DAILY PRN RECTAL 06/20/17 14:00 (Lactulose Liq) 30 ml QID PO 06/20/17 18:00 06/29/17 12:49 (Dilantin) 200 mg BID PO 06/20/17 21:00 06/29/17 08:47 (Pravachol) 80 mg HS PO 06/20/17 21:00 06/28/17 22:16 (Depakene) 250 mg TID PO 06/20/17 18:00 06/29/17 12:49 (Keppra) 500 mg BID PO 06/20/17 21:00 06/29/17 08:46 (Ativan Inj) 1 mg Q2H PRN IV PUSH 06/22/17 11:45 (Prezista) 800 mg DAILY PO 06/26/17 16:45 06/29/17 08:46 (Folate) 1 mg DAILY PO 06/26/17 16:45 06/29/17 08:46 (Norvir) 100 mg DAILY PO 06/26/17 16:45 06/29/17 08:47 (Epivir) 300 mg DAILY PO 06/26/17 17:00 06/29/17 08:46 (Ziagen) 600 mg DAILY PO 06/26/17 17:00 06/29/17 08:47 A/P Problem List: (1) Encephalopathy acute ICD Code: G93.40 Status: Acute (2) Hyperammonemia ICD Code: E72.20 Status: Acute (3) Seizure ICD Code: R56.9 Status: Acute Assessment and Plan 57-year-old male with a reported past medical history of seizures, CVA, HIV, HLD who was brought in for possible seizure Acute encephalopathy Probably metabolic secondary to postictal state and elevated ammonia/ hepatic encephalopathy. Mentation is somewhat improved, however, he remains largely encephalopathic. MRI brain does not show any acute findings that could explain patient's encephalopathy. Ammonia 101. Repeat level is over 40. - Continue lactulose, titrate to 3-4 BMs daily. - follow up with neurology. - neuro checks. - PT/ OT. Seizure disorder Reported seizure witnessed by the patient's roommate, but he has not been able to be contacted. Dilantin level undetectable, patient loaded with IV Celebrex in the ED. Bicarbonate was decreased at 17.6. Possible breakthrough seizure or secondary to noncompliance with medication. Phenytoin level was < 0.4. Repeat Phenytoin 11.9, 8.1 and Valproic acid level 49. EEG shows abnormal study consistent with diffuse encephalopathy. - Continue Keppra 500mg BID, Phenytoin 200mg BID and Valproic acid 250mg BID. - Neurology follow-up. - seizure precautions. HIV On antiretrovirals. - resume home antiretrovirals. Headache The pt seemed to be indicating a headache. Seems to be resolved. - Tylenol as needed. DVT prophylaxis: SCDs Discharge Planning Awaiting placement Andreas Rogers DO Jun 29, 2017 13:36
[2017-06-29] MEDS: PRAVASTATIN SOD 80 MG TAB PO SCH (22:24)
[2017-06-30] VITALS (7 sets, daily range): BP systolic 119–142; BP diastolic 63–95; PULSE 68–84; RESP 16–18; TEMP 97.9–99.7; O2SAT 96–100
[2017-06-30] MEDS: SODIUM CHLOR 0.9% 1000 ML INJ 1,000 ML IV SCH ×2 (04:00→16:37)
[2017-06-30] MEDS: levETIRAcetam 500 MG TAB PO SCH ×2 (09:04→22:41)
[2017-06-30] MEDS: VALPROIC ACID 250 MG CAP PO SCH ×3 (09:04→16:38)
[2017-06-30] MEDS: DARUNAVIR 800 MG TAB PO SCH (09:04)
[2017-06-30] MEDS: PHENYTOIN SODIUM 100 MG CAP PO SCH ×2 (09:05→22:41)
[2017-06-30] MEDS: RITONAVIR 100 MG TAB PO SCH (09:05)
[2017-06-30] MEDS: LACTULOSE SYRUP 20 GM/30 ML CUP PO SCH ×4 (09:06→22:41)
[2017-06-30] MEDS: ABACAVIR SULFATE 300 MG TAB PO SCH (09:06)
[2017-06-30] MEDS: FOLIC ACID 1 MG TAB PO SCH (09:06)
[2017-06-30] MEDS: SODIUM CHLORIDE 0.9% FLUSH 10 ML FLUSH IV FLUSH SCH ×2 (09:07→22:41)
--- NOTE | 2017-06-30 11:03 | HHI.PR ---
Subjective Remarks The patient was resting comfortably in a chair. His family was at the bedside. They were pleased with how well the patient was doing. They said that if he goes home he would not be able to take care of himself. Discussed with case management. Objective Vitals Vital Signs Date Time Temp Pulse Resp B/P Pulse Ox O2 Delivery O2 Flow Rate FiO2 06/30/17 08:00 98.4 73 16 135/73 100 06/30/17 04:00 98.2 68 18 135/77 97 06/30/17 04:00 Room Air 06/30/17 00:00 99.7 74 18 130/79 97 06/30/17 00:00 Room Air 06/29/17 20:00 Room Air 06/29/17 20:00 98.8 82 18 129/74 97 06/29/17 16:00 98.3 82 20 121/74 98 06/29/17 15:10 97 Room Air 06/29/17 12:00 97.5 81 20 114/74 97 I/O 06/29/17 06/29/17 06/29/17 06/30/17 06/30/17 06/30/17 06:59 14:59 22:59 06:59 14:59 22:59 Intake Total 360 ml 3386 ml 657 ml Output Total 1200 ml 1000 ml 1000 ml Balance -840 ml 2386 ml -343 ml Intake Oral 360 ml IV Total 3386 ml 657 ml Output Urine Total 1200 ml 1000 ml 1000 ml # Bowel Movements 0 1 Result Diagram: 06/26/17194206/26/171942 Imaging Last Impressions Chest X-Ray 06/27/17 0000 Signed Impressions: Service Date/Time: Tuesday, June 27, 2017 14:10 - CONCLUSION: No evidence of acute cardiopulmonary disease. Buzz Yañez MD Brain MRI 06/23/17 0000 Signed Impressions: Service Date/Time: Friday, June 23, 2017 08:53 - CONCLUSION: 1. One Central and cortical atrophy and moderate periventricular white disease. 2. Old ischemic changes. 3. Minimal sclerosis left temporal lobe. 4. There is no contrast enhancement. Alexys Faith MD FACR Objective Remarks GENERAL: Resting comfortably. SKIN: Warm and dry. HEAD: Normocephalic. EYES: No scleral icterus. No injection or drainage. NECK: Supple, trachea midline. No JVD or lymphadenopathy. CARDIOVASCULAR: Regular rate and rhythm without murmurs, gallops, or rubs. RESPIRATORY: Breath sounds equal bilaterally. No accessory muscle use. GASTROINTESTINAL: Abdomen soft, non-tender, nondistended. MUSCULOSKELETAL: No cyanosis, or edema. BACK: Nontender without obvious deformity. No CVA tenderness. NEURO: Answers questions with a "yes or no" for the most part. PSYCH: Flattened affect. Procedures None Medications and IVs Current Medications Medications (Trade) Dose Ordered Sig/Terri Route Start Time Stop Time Status Last Admin (NS 1000 ml Inj) 1,000 ml @ 100 mls/hr Q10H IV 06/20/17 14:00 06/30/17 04:00 (NS Flush) 2 ml UNSCH PRN IV FLUSH 06/20/17 14:00 (NS Flush) 2 ml BID IV FLUSH 06/20/17 21:00 06/30/17 09:07 (Tylenol) 650 mg Q4H PRN PO 06/20/17 14:00 (Zofran Inj) 4 mg Q6H PRN IVP 06/20/17 14:00 (Narcan Inj) 0.4 mg UNSCH PRN IV 06/20/17 14:00 (Milk Of Magnesia Liq) 30 ml Q12H PRN PO 06/20/17 14:00 (Senokot) 17.2 mg Q12H PRN PO 06/20/17 14:00 (Dulcolax Supp) 10 mg DAILY PRN RECTAL 06/20/17 14:00 (Lactulose Liq) 30 ml QID PO 06/20/17 18:00 06/30/17 09:06 (Dilantin) 200 mg BID PO 06/20/17 21:00 06/30/17 09:05 (Pravachol) 80 mg HS PO 06/20/17 21:00 06/29/17 22:24 (Depakene) 250 mg TID PO 06/20/17 18:00 06/30/17 09:04 (Keppra) 500 mg BID PO 06/20/17 21:00 06/30/17 09:04 (Ativan Inj) 1 mg Q2H PRN IV PUSH 06/22/17 11:45 (Prezista) 800 mg DAILY PO 06/26/17 16:45 06/30/17 09:04 (Folate) 1 mg DAILY PO 06/26/17 16:45 06/30/17 09:06 (Norvir) 100 mg DAILY PO 06/26/17 16:45 06/30/17 09:05 (Epivir) 300 mg DAILY PO 06/26/17 17:00 06/30/17 09:05 (Ziagen) 600 mg DAILY PO 06/26/17 17:00 06/30/17 09:06 A/P Problem List: (1) Encephalopathy acute ICD Code: G93.40 Status: Acute (2) Hyperammonemia ICD Code: E72.20 Status: Acute (3) Seizure ICD Code: R56.9 Status: Acute Assessment and Plan 57-year-old male with a reported past medical history of seizures, CVA, HIV, HLD who was brought in for possible seizure Acute encephalopathy Probably metabolic secondary to postictal state and elevated ammonia/ hepatic encephalopathy. Mentation is somewhat improved, however, he remains largely encephalopathic. MRI brain does not show any acute findings that could explain patient's encephalopathy. Ammonia 101. Repeat level is over 40. - Continue lactulose, titrate to 3-4 BMs daily. - follow up with neurology. - neuro checks. - PT/ OT. - Case management following and assisting with placement. Seizure disorder Reported seizure witnessed by the patient's roommate, but he has not been able to be contacted. Dilantin level undetectable, patient loaded with IV Celebrex in the ED. Bicarbonate was decreased at 17.6. Possible breakthrough seizure or secondary to noncompliance with medication. Phenytoin level was < 0.4. Repeat Phenytoin 11.9, 8.1 and Valproic acid level 49. EEG shows abnormal study consistent with diffuse encephalopathy. - Continue Keppra 500mg BID, Phenytoin 200mg BID and Valproic acid 250mg BID. - Neurology follow-up. - seizure precautions. HIV On antiretrovirals. - resume home antiretrovirals. Headache The pt seemed to be indicating a headache. Seems to be resolved. - Tylenol as needed. DVT prophylaxis: SCDs Discharge Planning Awaiting placement Andreas Rogers DO Jun 30, 2017 11:03
--- NOTE | 2017-06-30 17:29 | HHI.PR ---
Review/Management Diagnosis old CVA SZ disorder Plan Recheck phenytoin and valproic acid levels Diagnosis/Plan: Subjective Subjective Comments No acute events reported No sz. Active Medications Current Medications Medications (Trade) Dose Ordered Sig/Terri Route Start Time Stop Time Status Last Admin (NS 1000 ml Inj) 1,000 ml @ 100 mls/hr Q10H IV 06/20/17 14:00 06/30/17 16:37 (NS Flush) 2 ml UNSCH PRN IV FLUSH 06/20/17 14:00 (NS Flush) 2 ml BID IV FLUSH 06/20/17 21:00 06/30/17 09:07 (Tylenol) 650 mg Q4H PRN PO 06/20/17 14:00 (Zofran Inj) 4 mg Q6H PRN IVP 06/20/17 14:00 (Narcan Inj) 0.4 mg UNSCH PRN IV 06/20/17 14:00 (Milk Of Magnesia Liq) 30 ml Q12H PRN PO 06/20/17 14:00 (Senokot) 17.2 mg Q12H PRN PO 06/20/17 14:00 (Dulcolax Supp) 10 mg DAILY PRN RECTAL 06/20/17 14:00 (Lactulose Liq) 30 ml QID PO 06/20/17 18:00 06/30/17 16:38 (Dilantin) 200 mg BID PO 06/20/17 21:00 06/30/17 09:05 (Pravachol) 80 mg HS PO 06/20/17 21:00 06/29/17 22:24 (Depakene) 250 mg TID PO 06/20/17 18:00 06/30/17 16:38 (Keppra) 500 mg BID PO 06/20/17 21:00 06/30/17 09:04 (Ativan Inj) 1 mg Q2H PRN IV PUSH 06/22/17 11:45 (Prezista) 800 mg DAILY PO 06/26/17 16:45 06/30/17 09:04 (Folate) 1 mg DAILY PO 06/26/17 16:45 06/30/17 09:06 (Norvir) 100 mg DAILY PO 06/26/17 16:45 06/30/17 09:05 (Epivir) 300 mg DAILY PO 06/26/17 17:00 06/30/17 09:05 (Ziagen) 600 mg DAILY PO 06/26/17 17:00 06/30/17 09:06 Allergies Allergies Coded Allergies No Known Allergies (Unverified06/20/17) Exam I&O / VS 06/29/17 06/29/17 06/30/17 14:59 22:59 06:59 Intake Total 360 ml 3386 ml 657 ml Output Total 1200 ml 1000 ml 1000 ml Balance -840 ml 2386 ml -343 ml Intake Oral 360 ml IV Total 3386 ml 657 ml Output Urine Total 1200 ml 1000 ml 1000 ml # Bowel Movements 0 1 Vital Signs Date Time Temp Pulse Resp B/P Pulse Ox O2 Delivery O2 Flow Rate FiO2 06/30/17 12:00 98.1 78 16 119/74 97 06/30/17 11:33 96 21 06/30/17 08:00 98.4 73 16 135/73 100 06/30/17 08:00 Room Air 06/30/17 04:00 98.2 68 18 135/77 97 06/30/17 04:00 Room Air 06/30/17 00:00 99.7 74 18 130/79 97 06/30/17 00:00 Room Air 06/29/17 20:00 Room Air 06/29/17 20:00 98.8 82 18 129/74 97 Exam Comments alert, follow commands CN intact MOTOR--generalized weakness Objective Radiology Results MRI brain---no acute changes left temporal lobe sclerosis. Old ischemic changes. No abnormal enhancement Jewel Mata PhD Jun 30, 2017 17:28
[2017-06-30] MEDS: PRAVASTATIN SOD 80 MG TAB PO SCH (22:41)
[2017-07-01] VITALS: BP 138/82; PULSE 73; RESP 18; TEMP 98; O2SAT 98
[2017-07-01] MEDS: SODIUM CHLOR 0.9% 1000 ML INJ 1,000 ML IV SCH ×2 (00:03→12:09)
[2017-07-01 04:00] VITALS: BP 126/78; PULSE 83; RESP 16; TEMP 97.8; O2SAT 96
[2017-07-01 08:00] VITALS: BP 120/72; PULSE 73; RESP 18; TEMP 97.8; O2SAT 97
[2017-07-01] MEDS: SODIUM CHLORIDE 0.9% FLUSH 10 ML FLUSH IV FLUSH SCH (09:00)
[2017-07-01] MEDS: DARUNAVIR 800 MG TAB PO SCH (09:46)
[2017-07-01] MEDS: levETIRAcetam 500 MG TAB PO SCH (09:46)
[2017-07-01] MEDS: LACTULOSE SYRUP 20 GM/30 ML CUP PO SCH ×3 (09:46→17:30)
[2017-07-01] MEDS: RITONAVIR 100 MG TAB PO SCH (09:46)
[2017-07-01] MEDS: FOLIC ACID 1 MG TAB PO SCH (09:46)
[2017-07-01] MEDS: ABACAVIR SULFATE 300 MG TAB PO SCH (09:46)
[2017-07-01] MEDS: PHENYTOIN SODIUM 100 MG CAP PO SCH (09:46)
[2017-07-01] MEDS: VALPROIC ACID 250 MG CAP PO SCH ×3 (09:46→17:30)
--- NOTE | 2017-07-01 09:53 | HHI.PR ---
Subjective Remarks Family at the bedside. The pt was resting comfortably. No acute complaints. Discussed with nursing. Objective Vitals Vital Signs Date Time Temp Pulse Resp B/P Pulse Ox O2 Delivery O2 Flow Rate FiO2 07/01/17 04:00 97.8 83 16 126/78 96 07/01/17 00:00 98.0 73 18 138/82 98 06/30/17 20:11 21 06/30/17 20:00 97.9 84 18 140/95 98 06/30/17 19:00 Room Air 06/30/17 16:00 98.2 76 16 142/63 98 06/30/17 12:00 98.1 78 16 119/74 97 06/30/17 11:33 96 21 I/O 06/30/17 06/30/17 06/30/17 07/01/17 07/01/17 07/01/17 07:00 15:00 23:00 07:00 15:00 23:00 Intake Total 657 ml 2104 ml 120 ml Output Total 1000 ml 2200 ml Balance -343 ml 2104 ml -2080 ml Intake Oral 240 ml 120 ml IV Total 657 ml 1864 ml Output Urine Total 1000 ml 2200 ml # Voids 2 # Bowel Movements 1 0 Imaging Last Impressions Chest X-Ray 06/27/17 0000 Signed Impressions: Service Date/Time: Tuesday, June 27, 2017 14:10 - CONCLUSION: No evidence of acute cardiopulmonary disease. Buzz Yañez MD Brain MRI 06/23/17 0000 Signed Impressions: Service Date/Time: Friday, June 23, 2017 08:53 - CONCLUSION: 1. One Central and cortical atrophy and moderate periventricular white disease. 2. Old ischemic changes. 3. Minimal sclerosis left temporal lobe. 4. There is no contrast enhancement. Alexys Faith MD FACR Objective Remarks GENERAL: Resting comfortably. SKIN: Warm and dry. HEAD: Normocephalic. EYES: No scleral icterus. No injection or drainage. NECK: Supple, trachea midline. No JVD or lymphadenopathy. CARDIOVASCULAR: Regular rate and rhythm without murmurs, gallops, or rubs. RESPIRATORY: Breath sounds equal bilaterally. No accessory muscle use. GASTROINTESTINAL: Abdomen soft, non-tender, nondistended. MUSCULOSKELETAL: No cyanosis, or edema. BACK: Nontender without obvious deformity. No CVA tenderness. NEURO: Answers questions with a "yes or no" for the most part. PSYCH: Flattened affect. Procedures None Medications and IVs Current Medications Medications (Trade) Dose Ordered Sig/Terri Route Start Time Stop Time Status Last Admin (NS 1000 ml Inj) 1,000 ml @ 100 mls/hr Q10H IV 06/20/17 14:00 07/01/17 00:03 (NS Flush) 2 ml UNSCH PRN IV FLUSH 06/20/17 14:00 (NS Flush) 2 ml BID IV FLUSH 06/20/17 21:00 06/30/17 22:41 (Tylenol) 650 mg Q4H PRN PO 06/20/17 14:00 (Zofran Inj) 4 mg Q6H PRN IVP 06/20/17 14:00 (Narcan Inj) 0.4 mg UNSCH PRN IV 06/20/17 14:00 (Milk Of Magnesia Liq) 30 ml Q12H PRN PO 06/20/17 14:00 (Senokot) 17.2 mg Q12H PRN PO 06/20/17 14:00 (Dulcolax Supp) 10 mg DAILY PRN RECTAL 06/20/17 14:00 (Lactulose Liq) 30 ml QID PO 06/20/17 18:00 07/01/17 09:46 (Dilantin) 200 mg BID PO 06/20/17 21:00 07/01/17 09:46 (Pravachol) 80 mg HS PO 06/20/17 21:00 06/30/17 22:41 (Depakene) 250 mg TID PO 06/20/17 18:00 07/01/17 09:46 (Keppra) 500 mg BID PO 06/20/17 21:00 07/01/17 09:46 (Ativan Inj) 1 mg Q2H PRN IV PUSH 06/22/17 11:45 (Prezista) 800 mg DAILY PO 06/26/17 16:45 07/01/17 09:46 (Folate) 1 mg DAILY PO 06/26/17 16:45 07/01/17 09:46 (Norvir) 100 mg DAILY PO 06/26/17 16:45 07/01/17 09:46 (Epivir) 300 mg DAILY PO 06/26/17 17:00 07/01/17 09:47 (Ziagen) 600 mg DAILY PO 06/26/17 17:00 07/01/17 09:46 A/P Problem List: (1) Encephalopathy acute ICD Code: G93.40 Status: Acute (2) Hyperammonemia ICD Code: E72.20 Status: Acute (3) Seizure ICD Code: R56.9 Status: Acute Assessment and Plan 57-year-old male with a reported past medical history of seizures, CVA, HIV, HLD who was brought in for possible seizure Acute encephalopathy Probably metabolic secondary to postictal state and elevated ammonia/ hepatic encephalopathy. Mentation is somewhat improved, however, he remains largely encephalopathic. MRI brain does not show any acute findings that could explain patient's encephalopathy. Ammonia 101. Repeat level is over 40. - Continue lactulose, titrate to 3-4 BMs daily. - follow up with neurology. - neuro checks. - PT/ OT. - Case management following and assisting with placement. Seizure disorder Reported seizure witnessed by the patient's roommate, but he has not been able to be contacted. Dilantin level undetectable, patient loaded with IV Celebrex in the ED. Bicarbonate was decreased at 17.6. Possible breakthrough seizure or secondary to noncompliance with medication. Phenytoin level was < 0.4. Repeat Phenytoin and Valproic acid levels therapeutic 07/01. EEG shows abnormal study consistent with diffuse encephalopathy. - Continue Keppra 500mg BID, Phenytoin 200mg BID and Valproic acid 250mg BID. - Neurology follow-up. - seizure precautions. HIV On antiretrovirals. - resume home antiretrovirals. Headache The pt seemed to be indicating a headache. Seems to be resolved. - Tylenol as needed. DVT prophylaxis: SCDs Discharge Planning Awaiting placement Andreas Rogers DO Jul 01, 2017 09:53
[2017-07-01 12:00] VITALS: BP 129/79; PULSE 91; RESP 18; TEMP 97.6; O2SAT 96
[2017-07-01 12:50] VITALS: O2SAT 97
[2017-07-01] MEDS ORDERED: LACT10SO PO (15:05)
--- NOTE | 2017-07-01 15:05 | HHI.DCPOC ---
Discharge Care Plan Diagnosis: (1) Post-ictal state (2) Seizure (3) Hyperammonemia (4) Encephalopathy acute Goals to Promote Your Health * To prevent worsening of your condition and complications * To maintain your health at the optimal level Directions to Meet Your Goals Take your medications as prescribed Follow your dietary instruction Follow activity as directed Keep your appointments as scheduled Take your immunizations and boosters as scheduled If your symptoms worsen call your PCP, if no PCP go to Urgent Care Center or Emergency Room Smoking is Dangerous to Your Health. Avoid second hand smoke Call the 24-hour hour crisis hotline for domestic abuse at Andreas Rogers DO Jul 01, 2017 15:05
--- NOTE | 2017-07-01 15:10 | HHI.DS ---
Discharge Summary Admission Date Jun 20, 2017 at 14:10 Discharge Date: Jul 01, 2017 Admitting Diagnosis hyperammonemia, postictal, seizure disorder (1) Encephalopathy acute ICD Code: G93.40 Diagnosis: Principal (2) Hyperammonemia ICD Code: E72.20 Diagnosis: Principal (3) Seizure ICD Code: R56.9 Diagnosis: Principal Procedures None Brief History - From Admission Written by Artemio Callaway, acting as scribe for Dr. Mondragon on 06/20/17 at 14:32. This note was transcribed by CYNDIE Wright. I, Dr. Jose Mondragon personally performed the history, physical exam, and medical decision making; and confirmed the accuracy of the information in the transcribed note. Authenticated by Dr. Jose Mondragon on 06/20/17 at 16:35. 57-year-old male with a reported past medical history of seizures, CVA, HIV, HLD who was brought in for possible seizure. Currently the patient is sitting up in bed, awake and alert, but completely disoriented and talking nonsensically. Patient is unable to answer any questions meaningfully and this is a noncontributory historian. History obtained from ED communication and the medical record. Reportedly the patient's friend/roommate noted the patient had a seizure. The question whether the patient has been taking his medications or not. He was found to have an elevated ammonia in the ED. The patient did receive 1 dose of lactulose. Significant Findings Laboratory Tests Test 06/28/17 17:00 Urine Occult Blood SMALL (NEG) Urine Leukocyte Esterase SMALL (NEG) Imaging Last Impressions Chest X-Ray 06/27/17 0000 Signed Impressions: Service Date/Time: Tuesday, June 27, 2017 14:10 - CONCLUSION: No evidence of acute cardiopulmonary disease. Buzz Yañez MD Brain MRI 06/23/17 0000 Signed Impressions: Service Date/Time: Friday, June 23, 2017 08:53 - CONCLUSION: 1. One Central and cortical atrophy and moderate periventricular white disease. 2. Old ischemic changes. 3. Minimal sclerosis left temporal lobe. 4. There is no contrast enhancement. Alexys Faith MD FACR PE at Discharge GENERAL: Resting comfortably. SKIN: Warm and dry. HEAD: Normocephalic. EYES: No scleral icterus. No injection or drainage. NECK: Supple, trachea midline. No JVD or lymphadenopathy. CARDIOVASCULAR: Regular rate and rhythm without murmurs, gallops, or rubs. RESPIRATORY: Breath sounds equal bilaterally. No accessory muscle use. GASTROINTESTINAL: Abdomen soft, non-tender, nondistended. MUSCULOSKELETAL: No cyanosis, or edema. BACK: Nontender without obvious deformity. No CVA tenderness. NEURO: Answers questions with a "yes or no" for the most part. PSYCH: Flattened affect. Hospital Course Acute encephalopathy Neurology was consulted. MRI brain did not show any acute findings that could explain patient's encephalopathy. Ammonia level was found to be 101. Repeat level is over 40. He was continued on lactulose, titrating to 3-4 BMs daily. He was placed on neuro checks. He worked with PT/ OT. Case management was following and assisted with placement. Mental status seems to be around baseline at this time. Seizure disorder Reported seizure witnessed by the patient's roommate. Dilantin level undetectable, patient loaded with IV Celebrex in the ED. Phenytoin level was < 0.4. Repeat Phenytoin and Valproic acid levels therapeutic 07/01. EEG showed abnormal study consistent with diffuse encephalopathy. He was continued on Keppra 500mg BID, Phenytoin 200mg BID and Valproic acid 250mg TID. He was placed on seizure precautions. He will follow up with neurology as an outpt. HIV We resumed his home antiretrovirals. Pt Condition on Discharge: Stable Discharge Disposition: Discharge to SNF Discharge Time: > 30 minutes Discharge Instructions DIET: Follow Instructions for: As Tolerated, No Restrictions Activities you can perform: Weight Bearing as Barbara Follow up Referrals: Neurology - 2 Weeks with Jewel Mata PhD, MD PCP Follow-up - 1 Week SNF/GROUP HOME/ with [facility] New Medications: Lactulose Liq (Lactulose Liq) 10 Gm/15 Ml Soln 30 ML PO Q6H Titrate to 3-4 bowel movements daily PRN Encephalopathy #1 Ref 0 BOTTLE Continued Medications: Abacavir-Lamivudine (Epzicom) Unknown Strength Tab 600 MG PO DAILY Hazardous agent; use appropriate precautions for handling & disposal. Mgmt Viral Infection #30 Ref 0 TAB Darunavir (Prezista) Unknown Strength Tab 800 MG PO DAILY Mgmt Viral Infection #30 Ref 0 TAB Folic Acid (Folic Acid) Unknown Strength Tab 1 MG PO DAILY Nutritional Supplement Ref 0 TAB Levetiracetam (Levetiracetam) Unknown Strength Tab 500 MG PO BID Control Seizures #60 Ref 0 TAB Phenytoin Extended (Dilantin) 100 Mg Cap 200 MG PO BID Control Seizures #90 Ref 0 CAP Pravastatin (Pravastatin) 80 Mg Tab 80 MG PO HS Cholesterol Management #30 Ref 0 TAB Ritonavir (Norvir) Unknown Strength Cap 100 MG PO DAILY Mgmt Viral Infection #180 Ref 0 CAP Valproic Acid (Valproic Acid) 250 Mg Cap 250 MG PO TID #90 Ref 0 CAP Andreas Rogers DO Jul 01, 2017 15:10
[2017-07-01 16:00] VITALS: BP 132/84; PULSE 88; RESP 20; TEMP 98.9; O2SAT 97
== END 2017-07-01 19:44 | DRG 918 ==
LOC: NEPD 11:54 → NEDA 13:58 → OBSVTOIN 14:10 → N04B 16:58
PROVIDERS: ADMIT Hospitalist; ATTEND Hospitalist
DX: T42.0X1A Poisoning by hydantoin derivatives, accidental (unintentional), initial encounter (principal); E72.20 Disorder of urea cycle metabolism, unspecified; I69.351 Hemiplegia and hemiparesis following cerebral infarction affecting right dominant side; K72.90 Hepatic failure, unspecified without coma; G40.409 Other generalized epilepsy and epileptic syndromes, not intractable, without status epilepticus; T42.0X6A Underdosing of hydantoin derivatives, initial encounter; Z91.128 Patient's intentional underdosing of medication regimen for other reason; E78.5 Hyperlipidemia, unspecified; I69.320 Aphasia following cerebral infarction; Z21 Asymptomatic human immunodeficiency virus [HIV] infection status
CPT/HCPCS: 70553; 71010; 80048; 80053; 80076; 80164; 80185; 81001; 82140; 82607; 84443; 85025; 95819; 96374; A9579; J7030; Q2009